=== PATIENT | male | born 1950 | race Caucasian/White ===

== ENCOUNTER 2018-09-15 06:45 | Inpatient (IN) ==
[2018-09-15] MEDS ORDERED: ENOXAPARIN 100 MG/ML SYRINGE SUBCUT STA (07:09)
[2018-09-15] MEDS ORDERED: POTASSIUM CHLORIDE 20 MEQ TABLET PO PRN (08:48)
[2018-09-15] MEDS ORDERED: MORPHINE 4 MG/1 ML VIAL IV PRN (08:48)
[2018-09-15] MEDS ORDERED: GLUCAGON 1 MG VIAL IM PRN (08:48)
[2018-09-15] MEDS ORDERED: MAGNESIUM SULF RIDER 2 GM in PREMIX 1 EACH IV PRN (08:48)
[2018-09-15] MEDS ORDERED: DEXTROSE 50% 25 GM/50 ML VIAL IV PRN (08:48)
[2018-09-15] MEDS ORDERED: MAGNESIUM SULF RIDER 4 GM in PREMIX 1 EACH IV PRN (08:48)
[2018-09-15] MEDS ORDERED: ONDANSETRON 4 MG/2 ML VIAL IV PRN (08:48)
[2018-09-15] MEDS ORDERED: NITROGLYCERIN SL 0.4 MG TABLET SL PRN (08:52)
[2018-09-15] MEDS ORDERED: METOPROLOL TARTRATE 5 MG/5 ML VIAL IV PRN (10:02)
[2018-09-15] MEDS: SODIUM CHLORIDE 0.45% 1,000 ML IV SCH (10:58)
[2018-09-15] MEDS: NITROGLYCERIN 2% OINT 1 INCH/GM PACK TOP SCH ×2 (10:59→21:58)
[2018-09-15 14:55] LABS: Alanine Aminotransferase 13 U/L (16-61); Albumin 2.8 G/DL (3.4-5.0); Alkaline Phosphatase 105 U/L (45-117); Aspartate Amino Transferase 16 U/L (0-37); Bilirubin,Total < 0.39 MG/DL (0.2-1.0); Blood Urea Nitrogen 52 MG/DL (7-18); Glucose 159 MG/DL (74-106); Osmolality,Calculated 299.1 MOS/KG (273-304); Potassium 4.6 MMOL/L (3.5-5.1); Risk Ratio 3.59; Sodium 142 MMOL/L (136-145); Total Protein 6.3 G/DL (6.4-8.3)
[2018-09-15] MEDS ORDERED: SODIUM POLYSTYRENE SULFATE 15 GM/60 ML BOTTLE PO PRN (14:58)
[2018-09-15] MEDS: INSULIN LISPRO 100 UNIT/ML SUBCUT SCH ×3 (15:02→21:59)
[2018-09-15] MEDS: CLOPIDOGREL 75 MG TABLET PO SCH (15:19)
[2018-09-15] MEDS: METOPROLOL SUCCINATE XL 100 MG TABLET PO SCH (15:20)
[2018-09-15] MEDS: POLYCARBOPHIL 625 MG TABLET PO SCH (21:58)
[2018-09-15] MEDS: RANOLAZINE 500 MG TABLET PO SCH (21:59)
[2018-09-15] MEDS: ATORVASTATIN 80 MG TABLET PO SCH (21:59)
[2018-09-15] MEDS: CILOSTAZOL 100 MG TABLET PO SCH (21:59)
[2018-09-15] MEDS: ASPIRIN EC 81 MG TABLET PO SCH (22:03)
[2018-09-16 05:31] LABS: Basophils # 0.1 10*3/uL (0.0-0.2); Basophils % 0.8 % (0.0-0.8); Eosinophils # 0.3 10*3/uL (0.0-0.87); Eosinophils % 3.6 % (0.00-10.9); Hematocrit 36.2 VOL% (42.0-52.0); Immature Granulocytes % 0.5 %; Immature Granulocytes Absolute 0.04 #; Lymphocytes % 25.9 % (21.2-54.2); Mean Corpuscular HGB Conc 33.1 GM/DL (32-36); Mean Corpuscular Hemoglobin 33 PG (27-34); Mean Corpuscular Volume 99.7 FL (87-102); Mean Platelet Volume 10.9 FL (9.6-12.0); Monocytes # 0.5 10*3/uL (0.11-0.8); Monocytes % 6.5 % (1.7-12.7); Neutrophils # 4.9 10*3/uL (1.4-7.4); Neutrophils % 62.7 % (38.7-73.9); Platelet Count 207 T/CUMM (130-400); Red Blood Count 3.63 MC/CUMM (3.8-5.5); Red Cell Distribution Width 12.3 % (9.3-17.3); White Blood Count 7.9 T/CUMM (4-12)
[2018-09-16 05:48] LABS: Calcium 7.7 MG/DL (8.5-10.1); Osmolality,Calculated 297.1 MOS/KG (273-304); Potassium 5.1 MMOL/L (3.5-5.1)
[2018-09-16] MEDS: LEVOTHYROXINE 75 MCG TABLET PO SCH (06:05)
[2018-09-16] MEDS: ENOXAPARIN 30 MG/0.3 ML SYRINGE SUBCUT SCH (08:09)
[2018-09-16] MEDS: NITROGLYCERIN 2% OINT 1 INCH/GM PACK TOP SCH ×2 (08:09→21:43)
[2018-09-16] MEDS: CLOPIDOGREL 75 MG TABLET PO SCH (08:10)
[2018-09-16] MEDS: FUROSEMIDE 40 MG TABLET PO SCH (08:10)
[2018-09-16] MEDS: METOPROLOL SUCCINATE XL 100 MG TABLET PO SCH (08:10)
[2018-09-16] MEDS: ASCORBIC ACID 500 MG TABLET PO SCH (08:10)
[2018-09-16] MEDS: TAMSULOSIN 0.4 MG CAPSULE PO SCH (08:10)
[2018-09-16] MEDS: FINASTERIDE 5 MG TABLET PO SCH (08:10)
[2018-09-16] MEDS: MAGNESIUM OXIDE 400 MG TABLET PO SCH (08:10)
[2018-09-16] MEDS: PANTOPRAZOLE 40 MG TABLET PO SCH (08:11)
[2018-09-16] MEDS: glipiZIDE 5 MG TABLET PO SCH (08:11)
[2018-09-16] MEDS: RANOLAZINE 500 MG TABLET PO SCH ×2 (08:11→21:42)
[2018-09-16] MEDS: POLYCARBOPHIL 625 MG TABLET PO SCH ×2 (08:17→21:42)
[2018-09-16] MEDS: CILOSTAZOL 100 MG TABLET PO SCH ×2 (08:17→21:42)
[2018-09-16] MEDS: INSULIN LISPRO 100 UNIT/ML SUBCUT SCH ×4 (08:21→21:43)
[2018-09-16] MEDS: SODIUM CHLORIDE 0.45% 1,000 ML IV SCH ×2 (08:21→10:30)
[2018-09-16] MEDS: CETIRIZINE 10 MG TABLET PO SCH (08:22)
[2018-09-16] MEDS ORDERED: METOPROLOL SUCCINATE XL 100 MG TABLET PO SCH (09:00)
[2018-09-16] MEDS ORDERED: SODIUM POLYSTYRENE SULFATE 15 GM/60 ML BOTTLE PO SCH (09:00)
[2018-09-16] MEDS ORDERED: CLOPIDOGREL 75 MG TABLET PO SCH (09:00)
[2018-09-16] MEDS: ACETYLCYSTEINE 600 MG CAPSULE PO SCH (21:42)
[2018-09-16] MEDS: ASPIRIN EC 81 MG TABLET PO SCH (21:43)
[2018-09-16] MEDS: ATORVASTATIN 80 MG TABLET PO SCH (21:43)
[2018-09-17 05:05] LABS: Calcium 7.4 MG/DL (8.5-10.1); Osmolality,Calculated 292.4 MOS/KG (273-304); Potassium 4.5 MMOL/L (3.5-5.1)
[2018-09-17] MEDS: LEVOTHYROXINE 75 MCG TABLET PO SCH (05:53)
[2018-09-17] MEDS: SODIUM CHLORIDE 0.45% 1,000 ML IV SCH ×2 (06:29→09:30)
[2018-09-17] MEDS: INSULIN LISPRO 100 UNIT/ML SUBCUT SCH ×4 (08:59→22:16)
[2018-09-17] MEDS: TAMSULOSIN 0.4 MG CAPSULE PO SCH (09:23)
[2018-09-17] MEDS: ACETYLCYSTEINE 600 MG CAPSULE PO SCH ×2 (09:23→22:17)
[2018-09-17] MEDS: FINASTERIDE 5 MG TABLET PO SCH (09:23)
[2018-09-17] MEDS: ASCORBIC ACID 500 MG TABLET PO SCH (09:24)
[2018-09-17] MEDS: MAGNESIUM OXIDE 400 MG TABLET PO SCH (09:24)
[2018-09-17] MEDS: CILOSTAZOL 100 MG TABLET PO SCH ×2 (09:24→22:17)
[2018-09-17] MEDS: CLOPIDOGREL 75 MG TABLET PO SCH (09:24)
[2018-09-17] MEDS: POLYCARBOPHIL 625 MG TABLET PO SCH ×2 (09:24→22:17)
[2018-09-17] MEDS: RANOLAZINE 500 MG TABLET PO SCH ×2 (09:24→22:17)
[2018-09-17] MEDS: PANTOPRAZOLE 40 MG TABLET PO SCH (09:24)
[2018-09-17] MEDS: METOPROLOL SUCCINATE XL 100 MG TABLET PO SCH (09:24)
[2018-09-17] MEDS: FUROSEMIDE 40 MG TABLET PO SCH (09:24)
[2018-09-17] MEDS: glipiZIDE 5 MG TABLET PO SCH (09:24)
[2018-09-17] MEDS: NITROGLYCERIN 2% OINT 1 INCH/GM PACK TOP SCH ×2 (09:25→22:16)
[2018-09-17] MEDS: ENOXAPARIN 30 MG/0.3 ML SYRINGE SUBCUT SCH (09:31)
[2018-09-17] MEDS: CETIRIZINE 10 MG TABLET PO SCH (09:31)
[2018-09-17] MEDS: CARVEDILOL 25 MG TABLET PO SCH ×2 (11:50→22:17)
[2018-09-17] MEDS: ASPIRIN EC 81 MG TABLET PO SCH (22:16)
[2018-09-17] MEDS: ATORVASTATIN 80 MG TABLET PO SCH (22:17)
[2018-09-18] MEDS: SODIUM CHLORIDE 0.45% 1,000 ML IV SCH ×3 (06:38→16:42)
[2018-09-18] MEDS: LEVOTHYROXINE 75 MCG TABLET PO SCH (07:00)
[2018-09-18] MEDS ORDERED: MAGNESIUM SULF RIDER 2 GM in PREMIX 1 EACH IV PRN (07:04)
[2018-09-18] MEDS ORDERED: DIAZEPAM 5 MG TABLET PO ONE (07:04)
[2018-09-18] MEDS ORDERED: diphenhydrAMINE CAP 25 MG CAPSULE PO ONE (07:04)
[2018-09-18] MEDS ORDERED: POTASSIUM CHLORIDE RIDER 10 MEQ in PREMIX 1 EACH IV PRN (07:04)
[2018-09-18] MEDS: CARVEDILOL 25 MG TABLET PO SCH ×3 (07:10→20:48)
[2018-09-18] MEDS: ENOXAPARIN 30 MG/0.3 ML SYRINGE SUBCUT SCH (07:10)
[2018-09-18] MEDS: CLOPIDOGREL 75 MG TABLET PO SCH ×2 (07:10→10:27)
[2018-09-18 07:16] LABS: Osmolality,Calculated 295.3 MOS/KG (273-304); Potassium 5.3 MMOL/L (3.5-5.1)
[2018-09-18] MEDS ORDERED: LIDOCAINE 1%/EPI INJ 20 ML VIAL ONE (07:19)
[2018-09-18] MEDS ORDERED: HEPARIN/NACL 0.9% 2 UNITS/ML 1,000 ML IV ONE (07:19)
[2018-09-18 07:24] LABS: Basophils # 0.1 10*3/uL (0.0-0.2); Basophils % 0.8 % (0.0-0.8); Eosinophils # 0.3 10*3/uL (0.0-0.87); Eosinophils % 3.8 % (0.00-10.9); Immature Granulocytes % 0.3 %; Immature Granulocytes Absolute 0.02 #; Lymphocytes % 26.7 % (21.2-54.2); Mean Corpuscular HGB Conc 33.3 GM/DL (32-36); Mean Corpuscular Hemoglobin 33 PG (27-34); Mean Corpuscular Volume 98.7 FL (87-102); Mean Platelet Volume 10.9 FL (9.6-12.0); Monocytes # 0.6 10*3/uL (0.11-0.8); Neutrophils # 4.6 10*3/uL (1.4-7.4); Neutrophils % 60.4 % (38.7-73.9); Platelet Count 216 T/CUMM (130-400); Red Blood Count 3.95 MC/CUMM (3.8-5.5); Red Cell Distribution Width 12.3 % (9.3-17.3); White Blood Count 7.6 T/CUMM (4-12)
[2018-09-18] MEDS ORDERED: MIDAZOLAM 2 MG/2 ML VIAL ONE (07:51)
[2018-09-18] MEDS ORDERED: fentaNYL 100 MCG/2 ML VIAL ONE (07:51)
[2018-09-18] MEDS ORDERED: NITROGLYCERIN DRIP 50 MG/250 ML BOTTLE IV ONE (07:53)
[2018-09-18] MEDS ORDERED: LIDOCAINE 1% 20 ML VIAL ONE (07:53)
[2018-09-18] MEDS ORDERED: VERAPAMIL 5 MG/2 ML VIAL ONE (07:53)
[2018-09-18] MEDS: INSULIN LISPRO 100 UNIT/ML SUBCUT SCH ×4 (08:01→20:49)
[2018-09-18] MEDS: RANOLAZINE 500 MG TABLET PO SCH ×3 (10:25→20:48)
[2018-09-18] MEDS: FINASTERIDE 5 MG TABLET PO SCH (10:25)
[2018-09-18] MEDS: CETIRIZINE 10 MG TABLET PO SCH (10:25)
[2018-09-18] MEDS: TAMSULOSIN 0.4 MG CAPSULE PO SCH (10:27)
[2018-09-18] MEDS: FUROSEMIDE 40 MG TABLET PO SCH (10:28)
[2018-09-18] MEDS: MAGNESIUM OXIDE 400 MG TABLET PO SCH (10:29)
[2018-09-18] MEDS: ASCORBIC ACID 500 MG TABLET PO SCH (10:30)
[2018-09-18] MEDS: glipiZIDE 5 MG TABLET PO SCH (10:30)
[2018-09-18] MEDS: PANTOPRAZOLE 40 MG TABLET PO SCH (10:34)
[2018-09-18] MEDS: NITROGLYCERIN 2% OINT 1 INCH/GM PACK TOP SCH ×2 (10:35→20:48)
[2018-09-18] MEDS: ACETYLCYSTEINE 600 MG CAPSULE PO SCH ×2 (10:52→20:49)
[2018-09-18] MEDS: POLYCARBOPHIL 625 MG TABLET PO SCH ×2 (10:52→20:49)
[2018-09-18] MEDS: CILOSTAZOL 100 MG TABLET PO SCH ×2 (10:52→20:49)
[2018-09-18] MEDS ORDERED: diphenhydrAMINE CAP 25 MG CAPSULE PO PRN (11:31)
[2018-09-18 12:21] LABS: Troponin I 0.034 NG/ML (0.00-0.045)
[2018-09-18] MEDS: ATORVASTATIN 80 MG TABLET PO SCH (20:48)
[2018-09-18] MEDS: ASPIRIN EC 81 MG TABLET PO SCH (20:48)
[2018-09-19 03:54] LABS: Basophils # 0.1 10*3/uL (0.0-0.2); Basophils % 0.7 % (0.0-0.8); Eosinophils # 0.3 10*3/uL (0.0-0.87); Eosinophils % 4.4 % (0.00-10.9); Hematocrit 35.9 VOL% (42.0-52.0); Hemoglobin 11.9 GM/DL (14.0-18.0); Immature Granulocytes % 0.4 %; Immature Granulocytes Absolute 0.03 #; Lymphocytes # 1.7 10*3/uL (1.4-4.0); Lymphocytes % 25.4 % (21.2-54.2); Mean Corpuscular HGB Conc 33.1 GM/DL (32-36); Mean Corpuscular Hemoglobin 33 PG (27-34); Mean Corpuscular Volume 98.1 FL (87-102); Mean Platelet Volume 10.6 FL (9.6-12.0); Monocytes # 0.5 10*3/uL (0.11-0.8); Monocytes % 7.4 % (1.7-12.7); Neutrophils # 4.2 10*3/uL (1.4-7.4); Neutrophils % 61.7 % (38.7-73.9); Platelet Count 207 T/CUMM (130-400); Red Blood Count 3.66 MC/CUMM (3.8-5.5); Red Cell Distribution Width 12.2 % (9.3-17.3); White Blood Count 6.8 T/CUMM (4-12)
[2018-09-19 04:21] LABS: Calcium 7.7 MG/DL (8.5-10.1); Osmolality,Calculated 296.3 MOS/KG (273-304); Potassium 5.2 MMOL/L (3.5-5.1)
[2018-09-19] MEDS: LEVOTHYROXINE 75 MCG TABLET PO SCH (06:27)
[2018-09-19 08:30] VITALS: BP 161/77
[2018-09-19] MEDS: INSULIN LISPRO 100 UNIT/ML SUBCUT SCH (09:21)
[2018-09-19] MEDS: CLOPIDOGREL 75 MG TABLET PO SCH (09:21)
[2018-09-19] MEDS: CARVEDILOL 25 MG TABLET PO SCH (09:22)
[2018-09-19] MEDS: RANOLAZINE 500 MG TABLET PO SCH (09:22)
[2018-09-19] MEDS: PANTOPRAZOLE 40 MG TABLET PO SCH (09:22)
[2018-09-19] MEDS: MAGNESIUM OXIDE 400 MG TABLET PO SCH (09:22)
[2018-09-19] MEDS: CETIRIZINE 10 MG TABLET PO SCH (09:22)
[2018-09-19] MEDS: CILOSTAZOL 100 MG TABLET PO SCH (09:22)
[2018-09-19] MEDS: TAMSULOSIN 0.4 MG CAPSULE PO SCH (09:22)
[2018-09-19] MEDS: glipiZIDE 5 MG TABLET PO SCH (09:22)
[2018-09-19] MEDS: ASCORBIC ACID 500 MG TABLET PO SCH (09:22)
[2018-09-19] MEDS: ACETYLCYSTEINE 600 MG CAPSULE PO SCH (09:22)
[2018-09-19] MEDS: FUROSEMIDE 40 MG TABLET PO SCH (09:22)
[2018-09-19] MEDS: FINASTERIDE 5 MG TABLET PO SCH (09:22)
[2018-09-19] MEDS: NITROGLYCERIN 2% OINT 1 INCH/GM PACK TOP SCH (09:23)
[2018-09-19] MEDS: POLYCARBOPHIL 625 MG TABLET PO SCH (09:25)
[2018-09-19] MEDS ORDERED: ISOSORBIDE MONONITRATE 60 MG TABLET PO SCH (19:00)
[2018-09-21] MEDS ORDERED: ERGOCALCIFEROL 50,000 UNIT CAPSULE PO SCH (09:00)
== END 2018-09-19 11:23 | disposition home or self-care (01) | DRG 287 ==
LOC: EDBD → EDUNIT# → N.ED 06:45 → N.EDINP 08:48 → N.TELEN 14:10
PROVIDERS: ADMIT Internal Medicine Interventional Cardiology; ATTEND Internal Medicine Interventional Cardiology

== ENCOUNTER 2019-01-26 22:38 | Observation (INO) ==
[2019-01-27] MEDS ORDERED: NITROGLYCERIN SL 0.4 MG TABLET SL PRN (01:07)
[2019-01-27] MEDS ORDERED: ONDANSETRON 4 MG/2 ML VIAL IV PRN (02:04)
[2019-01-27] MEDS ORDERED: GLUCAGON 1 MG VIAL IM PRN (02:04)
[2019-01-27] MEDS ORDERED: DEXTROSE 50% 25 GM/50 ML VIAL IV PRN (02:04)
[2019-01-27] MEDS ORDERED: traZODone 50 MG TABLET PO PRN (02:04)
[2019-01-27] MEDS ORDERED: ACETAMINOPHEN 325 MG TABLET PO PRN (02:04)
[2019-01-27] MEDS ORDERED: ENOXAPARIN 40 MG/0.4 ML SYRINGE SUBCUT SCH (02:30)
[2019-01-27 02:51] LABS: Basophils % 0.3 % (0.0-0.8); Eosinophils # 0.3 10*3/uL (0.0-0.87); Eosinophils % 2.6 % (0.00-10.9); Hematocrit 36.4 VOL% (42.0-52.0); Immature Granulocytes % 0.2 %; Immature Granulocytes Absolute 0.02 #; Lymphocytes # 1.5 10*3/uL (1.4-4.0); Mean Corpuscular Volume 98.4 FL (87-102); Mean Platelet Volume 12.2 FL (9.6-12.0); Monocytes % 6.7 % (1.7-12.7); Neutrophils % 78.2 % (38.7-73.9); Platelet Count 184 T/CUMM (130-400); Red Cell Distribution Width 13.9 % (9.3-17.3); White Blood Count 12.1 T/CUMM (4-12)
[2019-01-27] MEDS: HEPARIN 5,000 UNIT/1 ML VIAL SUBCUT SCH ×3 (03:00→17:40)
[2019-01-27 03:16] LABS: Albumin 2.1 G/DL (3.4-5.0); Bilirubin,Total 0.4 MG/DL (0.2-1.0); Calcium 7.5 MG/DL (8.5-10.1); Total Protein 5.2 G/DL (6.4-8.3)
[2019-01-27 04:03] LABS: Risk Ratio 3.71; Thyroid Stimulating Hormone 3.56 uIU/ml (0.358-3.74); VLDL CHOLESTEROL 51.4 MG/DL
[2019-01-27] MEDS: LEVOTHYROXINE 75 MCG TABLET PO SCH (05:48)
[2019-01-27] MEDS: RANOLAZINE 500 MG TABLET PO SCH ×2 (09:15→21:57)
[2019-01-27] MEDS: CETIRIZINE 10 MG TABLET PO SCH (09:15)
[2019-01-27] MEDS: ASCORBIC ACID 500 MG TABLET PO SCH (09:16)
[2019-01-27] MEDS: FINASTERIDE 5 MG TABLET PO SCH (09:16)
[2019-01-27] MEDS: POLYCARBOPHIL 625 MG TABLET PO SCH ×2 (09:16→21:57)
[2019-01-27] MEDS: INSULIN LISPRO 100 UNIT/ML SUBCUT SCH ×4 (09:16→21:57)
[2019-01-27] MEDS: TAMSULOSIN 0.4 MG CAPSULE PO SCH (09:16)
[2019-01-27] MEDS: PANTOPRAZOLE 40 MG TABLET PO SCH (09:16)
[2019-01-27] MEDS: METOPROLOL SUCCINATE XL 100 MG TABLET PO SCH (09:16)
[2019-01-27] MEDS: glipiZIDE 5 MG TABLET PO SCH (09:16)
[2019-01-27] MEDS: DOCUSATE SODIUM 100 MG CAPSULE PO PRN (09:16)
[2019-01-27] MEDS: CILOSTAZOL 100 MG TABLET PO SCH ×2 (09:16→21:57)
[2019-01-27] MEDS: ASPIRIN EC 81 MG TABLET PO SCH (09:16)
[2019-01-27] MEDS: MAGNESIUM OXIDE 400 MG TABLET PO SCH (09:16)
[2019-01-27] MEDS: FUROSEMIDE 40 MG/4 ML VIAL IV SCH ×2 (09:17→15:47)
[2019-01-27] MEDS: SODIUM POLYSTYRENE SULFATE 15 GM/60 ML BOTTLE PO SCH (10:32)
[2019-01-27] MEDS: CLOPIDOGREL 75 MG TABLET PO SCH (10:38)
[2019-01-27] MEDS: FENOFIBRATE 145 MG TABLET PO SCH (11:42)
[2019-01-27] MEDS: ISOSORBIDE MONONITRATE 60 MG TABLET PO SCH (18:20)
[2019-01-27] MEDS: ATORVASTATIN 40 MG TABLET PO SCH (21:57)
[2019-01-27] MEDS: hydrALAZINE 25 MG TABLET PO SCH (21:57)
[2019-01-27] MEDS: MORPHINE 4 MG/1 ML VIAL IV PRN (22:03)
[2019-01-28] MEDS: HEPARIN 5,000 UNIT/1 ML VIAL SUBCUT SCH ×3 (03:35→18:13)
[2019-01-28 04:50] LABS: Basophils % 0.5 % (0.0-0.8); Eosinophils # 0.2 10*3/uL (0.0-0.87); Eosinophils % 3.1 % (0.00-10.9); Hematocrit 34.2 VOL% (42.0-52.0); Immature Granulocytes % 0.3 %; Immature Granulocytes Absolute 0.02 #; Lymphocytes % 26.3 % (21.2-54.2); Mean Corpuscular HGB Conc 32.2 GM/DL (32-36); Mean Corpuscular Volume 99.7 FL (87-102); Mean Platelet Volume 12.3 FL (9.6-12.0); Monocytes % 10.2 % (1.7-12.7); Neutrophils % 59.6 % (38.7-73.9); Platelet Count 179 T/CUMM (130-400); Red Blood Count 3.43 MC/CUMM (3.8-5.5); Red Cell Distribution Width 13.3 % (9.3-17.3); White Blood Count 7.5 T/CUMM (4-12)
[2019-01-28 05:17] LABS: Calcium 7.1 MG/DL (8.5-10.1); Osmolality,Calculated 297.3 MOS/KG (273-304)
[2019-01-28] MEDS: LEVOTHYROXINE 75 MCG TABLET PO SCH (06:37)
[2019-01-28] MEDS: INSULIN LISPRO 100 UNIT/ML SUBCUT SCH ×4 (07:21→21:52)
[2019-01-28] MEDS: FUROSEMIDE 40 MG/4 ML VIAL IV SCH ×2 (09:27→17:09)
[2019-01-28] MEDS: PANTOPRAZOLE 40 MG TABLET PO SCH (10:53)
[2019-01-28] MEDS: POLYCARBOPHIL 625 MG TABLET PO SCH ×2 (10:53→21:52)
[2019-01-28] MEDS: CETIRIZINE 10 MG TABLET PO SCH (10:53)
[2019-01-28] MEDS: DOCUSATE SODIUM 100 MG CAPSULE PO PRN (10:53)
[2019-01-28] MEDS: hydrALAZINE 25 MG TABLET PO SCH (10:54)
[2019-01-28] MEDS: FENOFIBRATE 145 MG TABLET PO SCH (10:54)
[2019-01-28] MEDS: CILOSTAZOL 100 MG TABLET PO SCH ×2 (10:54→21:52)
[2019-01-28] MEDS: METOPROLOL SUCCINATE XL 100 MG TABLET PO SCH (10:54)
[2019-01-28] MEDS: ASCORBIC ACID 500 MG TABLET PO SCH (10:54)
[2019-01-28] MEDS: CLOPIDOGREL 75 MG TABLET PO SCH (10:54)
[2019-01-28] MEDS: SODIUM POLYSTYRENE SULFATE 15 GM/60 ML BOTTLE PO SCH (10:55)
[2019-01-28] MEDS: ASPIRIN EC 81 MG TABLET PO SCH (10:56)
[2019-01-28] MEDS: glipiZIDE 5 MG TABLET PO SCH (10:56)
[2019-01-28] MEDS: RANOLAZINE 500 MG TABLET PO SCH ×2 (10:56→21:52)
[2019-01-28] MEDS: FINASTERIDE 5 MG TABLET PO SCH (10:57)
[2019-01-28] MEDS: TAMSULOSIN 0.4 MG CAPSULE PO SCH (10:57)
[2019-01-28] MEDS: MAGNESIUM OXIDE 400 MG TABLET PO SCH (11:02)
[2019-01-28] MEDS: ISOSORBIDE MONONITRATE 60 MG TABLET PO SCH (18:14)
[2019-01-28] MEDS: ATORVASTATIN 40 MG TABLET PO SCH (21:52)
[2019-01-28] MEDS: MORPHINE 4 MG/1 ML VIAL IV PRN (21:59)
[2019-01-29] MEDS: HEPARIN 5,000 UNIT/1 ML VIAL SUBCUT SCH (04:00)
[2019-01-29] MEDS: LEVOTHYROXINE 75 MCG TABLET PO SCH (06:22)
[2019-01-29 07:32] LABS: Basophils # 0.1 10*3/uL (0.0-0.2); Basophils % 0.9 % (0.0-0.8); Eosinophils # 0.3 10*3/uL (0.0-0.87); Eosinophils % 4.9 % (0.00-10.9); Hemoglobin 12.2 GM/DL (14.0-18.0); Immature Granulocytes % 0.2 %; Immature Granulocytes Absolute 0.01 #; Lymphocytes # 1.8 10*3/uL (1.4-4.0); Lymphocytes % 30.5 % (21.2-54.2); Mean Corpuscular HGB Conc 33.9 GM/DL (32-36); Mean Corpuscular Volume 98.1 FL (87-102); Mean Platelet Volume 11.9 FL (9.6-12.0); Monocytes % 8.6 % (1.7-12.7); Neutrophils % 54.9 % (38.7-73.9); Platelet Count 184 T/CUMM (130-400); Red Blood Count 3.67 MC/CUMM (3.8-5.5); Red Cell Distribution Width 13.5 % (9.3-17.3); White Blood Count 5.7 T/CUMM (4-12)
[2019-01-29 08:08] VITALS: BP 154/79
[2019-01-29 08:09] LABS: Bilirubin,Total 0.4 MG/DL (0.2-1.0); Calcium 7.5 MG/DL (8.5-10.1); Osmolality,Calculated 292.5 MOS/KG (273-304); Total Protein 5.4 G/DL (6.4-8.3)
[2019-01-29] MEDS: CETIRIZINE 10 MG TABLET PO SCH (10:25)
[2019-01-29] MEDS: RANOLAZINE 500 MG TABLET PO SCH (10:25)
[2019-01-29] MEDS: FENOFIBRATE 145 MG TABLET PO SCH (10:25)
[2019-01-29] MEDS: CILOSTAZOL 100 MG TABLET PO SCH (10:25)
[2019-01-29] MEDS: FINASTERIDE 5 MG TABLET PO SCH (10:25)
[2019-01-29] MEDS: CLOPIDOGREL 75 MG TABLET PO SCH (10:26)
[2019-01-29] MEDS: glipiZIDE 5 MG TABLET PO SCH (10:26)
[2019-01-29] MEDS: POLYCARBOPHIL 625 MG TABLET PO SCH (10:26)
[2019-01-29] MEDS: PANTOPRAZOLE 40 MG TABLET PO SCH (10:26)
[2019-01-29] MEDS: ASPIRIN EC 81 MG TABLET PO SCH (10:26)
[2019-01-29] MEDS: SODIUM POLYSTYRENE SULFATE 15 GM/60 ML BOTTLE PO SCH (10:26)
[2019-01-29] MEDS: METOPROLOL SUCCINATE XL 100 MG TABLET PO SCH (10:26)
[2019-01-29] MEDS: MAGNESIUM OXIDE 400 MG TABLET PO SCH (10:26)
[2019-01-29] MEDS: ASCORBIC ACID 500 MG TABLET PO SCH (10:26)
[2019-01-29] MEDS: TAMSULOSIN 0.4 MG CAPSULE PO SCH (10:30)
[2019-01-29] MEDS: FUROSEMIDE 40 MG/4 ML VIAL IV SCH (10:31)
[2019-01-29] MEDS: INSULIN LISPRO 100 UNIT/ML SUBCUT SCH (10:34)
[2019-02-01] MEDS ORDERED: ERGOCALCIFEROL 50,000 UNIT CAPSULE PO SCH (09:00)
== END 2019-01-29 11:41 | disposition home or self-care (01) ==
LOC: N.3E 23:03 → SUATTDRO 01-27 00:19 → INTOOBSV 01-27 00:19
PROVIDERS: ADMIT Hospitalist; ATTEND Hospitalist

== ENCOUNTER 2019-03-09 17:05 | Inpatient (IN) ==
[2019-03-09] MEDS ORDERED: PROPOFOL 1,000 MG/100 ML BOTTLE IV ONE (19:02)
[2019-03-09] MEDS: PROPOFOL 1,000 MG/100 ML BOTTLE IV SCH ×2 (19:10→23:05)
[2019-03-09 20:17] LABS: Allen Test Positive; Pt O2 Delivery Device Ventilator
[2019-03-09] MEDS ORDERED: METOPROLOL TARTRATE 5 MG/5 ML VIAL IV PRN (20:17)
[2019-03-09 20:18] LABS: ABG Base Excess -6.2 MMOL/L (-2.5-2.5); ABG HCO3 19.3 MMOL/L (20-26); ABG Oxygen Saturation 93.2 % (95-100); ABG PCO2 44.9 MM HG (35-48); ABG PH 7.273 (7.35-7.45); ABG PO2 72.3 MM HG (80-95); ABG TCO2 18.5 MMOL/L (23-27)
[2019-03-09 20:57] LABS: Basophils # 0.1 10*3/uL (0.0-0.2); Basophils % 0.4 % (0.0-0.8); Eosinophils # 0.1 10*3/uL (0.0-0.87); Eosinophils % 0.4 % (0.00-10.9); Hematocrit 36.9 VOL% (42.0-52.0); Hemoglobin 12.5 GM/DL (14.0-18.0); Immature Granulocytes % 0.6 %; Immature Granulocytes Absolute 0.08 #; Lymphocytes # 0.6 10*3/uL (1.4-4.0); Lymphocytes % 4.1 % (21.2-54.2); Mean Corpuscular HGB Conc 33.9 GM/DL (32-36); Mean Corpuscular Volume 102.5 FL (87-102); Mean Platelet Volume 12.2 FL (9.6-12.0); Monocytes % 0.8 % (1.7-12.7); Neutrophils % 93.7 % (38.7-73.9); Platelet Count 205 T/CUMM (130-400); Red Cell Distribution Width 13.3 % (9.3-17.3); White Blood Count 14.2 T/CUMM (4-12)
[2019-03-09 21:11] LABS: INR 0.9; PT Patient Result 9.6 SECS
[2019-03-09] MEDS: FAMOTIDINE 20 MG/2 ML VIAL IV SCH (21:14)
[2019-03-09] MEDS: ENOXAPARIN 30 MG/0.3 ML SYRINGE SUBCUT SCH (21:14)
[2019-03-09 21:26] LABS: Osmolality,Calculated 290.1 MOS/KG (273-304)
[2019-03-09 21:27] LABS: Band Neutrophils 2 % (0-10); Lymphocytes 3 % (20-55); Macrocytosis 2+; Platelet Estimate Normal; Segmented Neutrophils 95 % (50-85); Total Cells Counted 100
[2019-03-09] MEDS: ALBUTEROL/IPRATROPIUM 3 ML NEB RESP TX SCH (23:45)
[2019-03-10] MEDS: ALBUTEROL/IPRATROPIUM 3 ML NEB RESP TX SCH ×6 (03:20→23:01)
[2019-03-10] MEDS: PROPOFOL 1,000 MG/100 ML BOTTLE IV SCH ×7 (03:53→21:35)
[2019-03-10 04:51] LABS: Allen Test Positive; Pt O2 Delivery Device Ventilator
[2019-03-10 05:06] LABS: ABG Base Excess -5.5 MMOL/L (-2.5-2.5); ABG HCO3 19.7 MMOL/L (20-26); ABG Oxygen Saturation 97.7 % (95-100); ABG PCO2 37.6 MM HG (35-48); ABG PH 7.338 (7.35-7.45); ABG PO2 100.2 MM HG (80-95); ABG TCO2 20.9 MMOL/L (23-27)
[2019-03-10] MEDS: hydrALAZINE 20 MG/1 ML VIAL IV PRN ×2 (05:12→17:05)
[2019-03-10 05:53] LABS: Thyroid Stimulating Hormone 3.13 uIU/ml (0.358-3.74)
[2019-03-10 06:54] LABS: Apearance,Urine Slightly Hazy (Clear); Bacteria,Urine Occasional /HPF (Few); Bilirubin,Urine Negative (Negative); Blood, Urine Moderate mg/dL (Negative); Glucose,Urine (UA) 150 mg/dL (Negative); Ketones,Urine 5 mg/dL (Negative); Mucus,Urine Occasional /LPF (Occasional); Nitrite,Urine Negative (Negative); Protein,Urine >=500 MG/DL; RBC,Urine 33 /HPF (0-4); Squamous Epithelial Cell,Urine Occasional /HPF (0-10); Urine Color Yellow (Yellow); Urine Specific Gravity 1.019 (1.001-1.035); Urine Urobilinogen < 2.0 EU/DL (0.2-1.0); WBC,Urine 5 /HPF (0-6)
[2019-03-10] MEDS: FAMOTIDINE 20 MG/2 ML VIAL IV SCH ×2 (07:50→20:23)
[2019-03-10] MEDS: FUROSEMIDE 40 MG/4 ML VIAL IV SCH ×2 (07:51→16:36)
[2019-03-10] MEDS: cefTRIAXone 1,000 MG in SYRINGE 1 EACH IV SCH (11:04)
[2019-03-10] MEDS: AZITHROMYCIN INJ 500 MG in SODIUM CHLORIDE 0.9% 250 ML IV SCH (11:17)
[2019-03-10] MEDS: INSULIN REGULAR 100 UNIT/ML SUBCUT SCH ×3 (11:29→17:39)
[2019-03-10] MEDS ORDERED: CALCIUM GLUCONATE 2,000 MG in SODIUM CHLORIDE 0.9% 100 ML IV PRN (13:26)
[2019-03-10] MEDS ORDERED: FUROSEMIDE 100 MG/10 ML VIAL IV ONE (13:34)
[2019-03-10] MEDS ORDERED: ALBUMIN 25% 25 GM in PREMIX 1 EACH IV ONE (13:35)
[2019-03-10] MEDS ORDERED: SODIUM POLYSTYRENE SULFATE 15 GM/60 ML BOTTLE PER TUBE PRN (14:37)
[2019-03-10] MEDS ORDERED: MORPHINE 4 MG/1 ML VIAL IV PRN (17:53)
[2019-03-10] MEDS ORDERED: MORPHINE 4 MG/1 ML VIAL ONE (17:57)
[2019-03-10] MEDS: ENOXAPARIN 30 MG/0.3 ML SYRINGE SUBCUT SCH (20:22)
[2019-03-10] MEDS: metOLazone 5 MG TABLET PO SCH (20:24)
[2019-03-11] MEDS: INSULIN REGULAR 100 UNIT/ML SUBCUT SCH ×5 (00:04→23:53)
[2019-03-11] MEDS: PROPOFOL 1,000 MG/100 ML BOTTLE IV SCH ×3 (00:50→07:50)
[2019-03-11] MEDS: ALBUTEROL/IPRATROPIUM 3 ML NEB RESP TX SCH ×6 (02:44→23:20)
[2019-03-11 05:34] LABS: Basophils % 0.1 % (0.0-0.8); Eosinophils % 0.1 % (0.00-10.9); Hematocrit 34.7 VOL% (42.0-52.0); Hemoglobin 12.4 GM/DL (14.0-18.0); Immature Granulocytes Absolute 0.18 #; Lymphocytes # 2.3 10*3/uL (1.4-4.0); Lymphocytes % 13.1 % (21.2-54.2); Mean Corpuscular HGB Conc 35.7 GM/DL (32-36); Mean Corpuscular Volume 105.8 FL (87-102); Mean Platelet Volume 12.7 FL (9.6-12.0); Monocytes % 7.5 % (1.7-12.7); Neutrophils % 78.2 % (38.7-73.9); Platelet Count 198 T/CUMM (130-400); Red Blood Count 3.28 MC/CUMM (3.8-5.5); White Blood Count 17.2 T/CUMM (4-12)
[2019-03-11 06:39] LABS: Band Neutrophils 3 % (0-10); Lymphocytes 13 % (20-55); Platelet Estimate Adequate; Segmented Neutrophils 79 % (50-85); Smudge Cells Moderate; Total Cells Counted 100
[2019-03-11 06:50] LABS: Hepatitis B Core IgM Quant 0.05 Index; Hepatitis B Surface Ag Quant 0.16 Index; Hepatitis B Surface Ag Result Negative (Negative); Hepatitis C Virus Ab Quant < 0.02 Index; Hepatitis C Virus Ab Result Negative (Negative)
[2019-03-11 07:40] LABS: Osmolality,Calculated 234.6 MOS/KG (273-304)
[2019-03-11] MEDS: FAMOTIDINE 20 MG/2 ML VIAL IV SCH ×2 (08:30→21:31)
[2019-03-11] MEDS: FUROSEMIDE 40 MG/4 ML VIAL IV SCH ×3 (08:30→16:35)
[2019-03-11] MEDS: metOLazone 5 MG TABLET PO SCH ×2 (08:31→22:14)
[2019-03-11] MEDS ORDERED: FUROSEMIDE 20 MG/2 ML VIAL ONE (09:35)
[2019-03-11 09:55] LABS: Osmolality,Calculated 306.4 MOS/KG (273-304)
[2019-03-11] MEDS: cefTRIAXone 1,000 MG in SYRINGE 1 EACH IV SCH (11:16)
[2019-03-11] MEDS: AZITHROMYCIN INJ 500 MG in SODIUM CHLORIDE 0.9% 250 ML IV SCH (11:20)
[2019-03-11] MEDS ORDERED: methylPREDNISolone SOD SUC 40 MG/1 ML VIAL ONE (14:07)
[2019-03-11] MEDS: methylPREDNISolone SOD SUC 125 MG/2 ML VIAL IV SCH ×2 (14:10→21:34)
[2019-03-11] MEDS: hydrALAZINE 20 MG/1 ML VIAL IV PRN ×2 (15:12→21:37)
[2019-03-11 16:13] LABS: ABG Base Excess -7.7 MMOL/L (-2.5-2.5); ABG HCO3 17.1 MMOL/L (20-26); ABG Oxygen Saturation 95.3 % (95-100); ABG PCO2 32.8 MM HG (35-48); ABG PH 7.336 (7.35-7.45); ABG PO2 80.6 MM HG (80-95); ABG TCO2 18.1 MMOL/L (23-27); Allen Test Positive
[2019-03-11] MEDS: ENOXAPARIN 30 MG/0.3 ML SYRINGE SUBCUT SCH (21:31)
[2019-03-12] MEDS: ALBUTEROL/IPRATROPIUM 3 ML NEB RESP TX SCH ×6 (02:29→23:56)
[2019-03-12] MEDS: hydrALAZINE 20 MG/1 ML VIAL IV PRN ×2 (03:05→18:09)
[2019-03-12 04:09] LABS: ABG Base Excess -6.7 MMOL/L (-2.5-2.5); ABG HCO3 18.4 MMOL/L (20-26); ABG PCO2 35.8 MM HG (35-48); ABG PH 7.329 (7.35-7.45); ABG PO2 86.5 MM HG (80-95); ABG TCO2 19.5 MMOL/L (23-27); Allen Test Positive
[2019-03-12] MEDS: methylPREDNISolone SOD SUC 125 MG/2 ML VIAL IV SCH ×3 (05:33→21:30)
[2019-03-12] MEDS: INSULIN REGULAR 100 UNIT/ML SUBCUT SCH ×3 (05:55→18:09)
[2019-03-12 06:06] LABS: Basophils % 0.1 % (0.0-0.8); Hematocrit 35.7 VOL% (42.0-52.0); Hemoglobin 11.7 GM/DL (14.0-18.0); Immature Granulocytes % 0.8 %; Immature Granulocytes Absolute 0.14 #; Lymphocytes # 0.3 10*3/uL (1.4-4.0); Lymphocytes % 1.8 % (21.2-54.2); Mean Corpuscular HGB Conc 32.8 GM/DL (32-36); Mean Corpuscular Volume 102.3 FL (87-102); Mean Platelet Volume 12.4 FL (9.6-12.0); Monocytes % 1.2 % (1.7-12.7); Neutrophils % 96.1 % (38.7-73.9); Platelet Count 226 T/CUMM (130-400); Red Blood Count 3.49 MC/CUMM (3.8-5.5); Red Cell Distribution Width 13.9 % (9.3-17.3); White Blood Count 18.5 T/CUMM (4-12)
[2019-03-12 06:34] LABS: Calcium 7.5 MG/DL (8.5-10.1)
[2019-03-12 06:35] LABS: Hypochromasia 1+; Lymphocytes 3 % (20-55); Ovalocytes Slight; Platelet Estimate Adequate; Segmented Neutrophils 97 % (50-85); Total Cells Counted 100
[2019-03-12] MEDS: FAMOTIDINE 20 MG/2 ML VIAL IV SCH (08:10)
[2019-03-12] MEDS: FUROSEMIDE 40 MG/4 ML VIAL IV SCH ×2 (08:10→16:20)
[2019-03-12] MEDS: metOLazone 5 MG TABLET PO SCH ×2 (08:11→21:30)
[2019-03-12] MEDS ORDERED: ceFAZolin 1,000 MG in SYRINGE 1 EACH IV ONE (09:11)
[2019-03-12] MEDS ORDERED: FUROSEMIDE 20 MG/2 ML VIAL ONE (11:15)
[2019-03-12] MEDS: AZITHROMYCIN INJ 500 MG in SODIUM CHLORIDE 0.9% 250 ML IV SCH (11:22)
[2019-03-12] MEDS: cefTRIAXone 1,000 MG in SYRINGE 1 EACH IV SCH (11:22)
[2019-03-12] MEDS ORDERED: FUROSEMIDE 40 MG/4 ML VIAL IV ONE (12:00)
[2019-03-12] MEDS ORDERED: BUPIVACAINE MPF 0.25% /EPI 30 ML VIAL ONE (12:43)
[2019-03-12] MEDS ORDERED: LIDOCAINE 1% 20 ML VIAL ONE (12:43)
[2019-03-12] MEDS ORDERED: HEPARIN 5,000 UNIT/1 ML VIAL ONE (12:43)
[2019-03-12] MEDS ORDERED: KETAMINE 500 MG/10 ML VIAL ONE (14:20)
[2019-03-12] MEDS ORDERED: HEPARIN 10,000 UNIT/10 ML VIAL IV SCH (16:30)
[2019-03-12] MEDS: ENOXAPARIN 30 MG/0.3 ML SYRINGE SUBCUT SCH (21:29)
[2019-03-13] MEDS: hydrALAZINE 20 MG/1 ML VIAL IV PRN ×2 (02:06→13:45)
[2019-03-13] MEDS: INSULIN REGULAR 100 UNIT/ML SUBCUT SCH ×5 (02:08→23:38)
[2019-03-13] MEDS: ALBUTEROL/IPRATROPIUM 3 ML NEB RESP TX SCH ×5 (03:27→19:34)
[2019-03-13 04:52] LABS: Basophils % 0.1 % (0.0-0.8); Hematocrit 36.7 VOL% (42.0-52.0); Immature Granulocytes % 0.5 %; Immature Granulocytes Absolute 0.09 #; Lymphocytes # 0.4 10*3/uL (1.4-4.0); Lymphocytes % 2.2 % (21.2-54.2); Mean Corpuscular HGB Conc 32.7 GM/DL (32-36); Mean Corpuscular Volume 102.2 FL (87-102); Mean Platelet Volume 12.6 FL (9.6-12.0); Monocytes % 2.3 % (1.7-12.7); Neutrophils % 94.9 % (38.7-73.9); Platelet Count 230 T/CUMM (130-400); Red Blood Count 3.59 MC/CUMM (3.8-5.5); Red Cell Distribution Width 13.5 % (9.3-17.3); White Blood Count 17.9 T/CUMM (4-12)
[2019-03-13 05:14] LABS: Calcium 7.8 MG/DL (8.5-10.1)
[2019-03-13 05:39] LABS: Lymphocytes 2 % (20-55); Segmented Neutrophils 96 % (50-85); Total Cells Counted 100
[2019-03-13 05:40] LABS: Hypochromasia 1+; Macrocytosis 1+; Platelet Estimate Normal
[2019-03-13] MEDS: methylPREDNISolone SOD SUC 125 MG/2 ML VIAL IV SCH ×3 (06:30→21:55)
[2019-03-13] MEDS: FUROSEMIDE 40 MG/4 ML VIAL IV SCH (08:27)
[2019-03-13] MEDS: FAMOTIDINE 20 MG/2 ML VIAL IV SCH (08:27)
[2019-03-13] MEDS: metOLazone 5 MG TABLET PO SCH (08:32)
[2019-03-13] MEDS ORDERED: LORazepam 2 MG/1 ML VIAL ONE (10:12)
[2019-03-13] MEDS: CLORAZEPATE 3.75 MG TABLET PO SCH ×2 (10:35→21:50)
[2019-03-13] MEDS: LORazepam 2 MG/1 ML VIAL IV PRN ×2 (10:35→18:18)
[2019-03-13] MEDS: AZITHROMYCIN INJ 500 MG in SODIUM CHLORIDE 0.9% 250 ML IV SCH (11:40)
[2019-03-13] MEDS: cefTRIAXone 1,000 MG in SYRINGE 1 EACH IV SCH (12:13)
[2019-03-13] MEDS: ISOSORBIDE MONONITRATE 60 MG TABLET PO SCH (18:21)
[2019-03-13 21:15] LABS: Barbiturates Screen,Urine Negative (Negative); Benzodiazepines Screen,Urine Positive (Negative); Cannabinoid Screen,Urine Negative (Negative); Opiate Screen,Urine Negative (Negative); Phencyclidine Screen,Urine Negative (Negative)
[2019-03-13] MEDS: ENOXAPARIN 30 MG/0.3 ML SYRINGE SUBCUT SCH (21:50)
[2019-03-14] MEDS: ALBUTEROL/IPRATROPIUM 3 ML NEB RESP TX SCH ×6 (00:25→19:44)
[2019-03-14] MEDS: methylPREDNISolone SOD SUC 125 MG/2 ML VIAL IV SCH ×3 (05:40→22:19)
[2019-03-14] MEDS: INSULIN REGULAR 100 UNIT/ML SUBCUT SCH ×3 (05:43→17:38)
[2019-03-14] MEDS: LEVOTHYROXINE 75 MCG TABLET PO SCH (06:20)
[2019-03-14 07:46] LABS: Basophils % 0.1 % (0.0-0.8); Hematocrit 38.2 VOL% (42.0-52.0); Hemoglobin 12.4 GM/DL (14.0-18.0); Immature Granulocytes % 0.8 %; Immature Granulocytes Absolute 0.18 #; Lymphocytes # 0.7 10*3/uL (1.4-4.0); Lymphocytes % 3.3 % (21.2-54.2); Mean Corpuscular HGB Conc 32.5 GM/DL (32-36); Mean Corpuscular Volume 101.1 FL (87-102); Mean Platelet Volume 11.6 FL (9.6-12.0); Monocytes % 4.6 % (1.7-12.7); Neutrophils % 91.2 % (38.7-73.9); Platelet Count 243 T/CUMM (130-400); Red Blood Count 3.78 MC/CUMM (3.8-5.5); White Blood Count 21.5 T/CUMM (4-12)
[2019-03-14 08:01] LABS: Calcium 7.8 MG/DL (8.5-10.1); Osmolality,Calculated 296.5 MOS/KG (273-304)
[2019-03-14] MEDS: CLOPIDOGREL 75 MG TABLET PO SCH (08:28)
[2019-03-14] MEDS: FAMOTIDINE 20 MG/2 ML VIAL IV SCH (08:28)
[2019-03-14] MEDS: CLORAZEPATE 3.75 MG TABLET PO SCH ×2 (08:29→20:04)
[2019-03-14 08:36] LABS: Lymphocytes 2 % (20-55); Segmented Neutrophils 94 % (50-85); Total Cells Counted 100
[2019-03-14] MEDS: hydrALAZINE 20 MG/1 ML VIAL IV PRN (08:36)
[2019-03-14 08:37] LABS: Hypochromasia Slight; Macrocytosis 1+
[2019-03-14 08:38] LABS: Platelet Estimate Normal
[2019-03-14] MEDS ORDERED: cloNIDine 0.3 MG/24 HR PATCH TRANSDERM SCH (10:00)
[2019-03-14] MEDS: AZITHROMYCIN INJ 500 MG in SODIUM CHLORIDE 0.9% 250 ML IV SCH (11:06)
[2019-03-14] MEDS: cefTRIAXone 1,000 MG in SYRINGE 1 EACH IV SCH (11:06)
[2019-03-14] MEDS: NICOTINE 21 MG/24 HR PATCH TRANSDERM SCH (14:22)
[2019-03-14] MEDS: ISOSORBIDE MONONITRATE 60 MG TABLET PO SCH (18:06)
[2019-03-14] MEDS: ENOXAPARIN 30 MG/0.3 ML SYRINGE SUBCUT SCH (19:51)
[2019-03-15] MEDS: ALBUTEROL/IPRATROPIUM 3 ML NEB RESP TX SCH ×7 (00:06→23:11)
[2019-03-15] MEDS: INSULIN REGULAR 100 UNIT/ML SUBCUT SCH ×5 (00:31→22:24)
[2019-03-15] MEDS: methylPREDNISolone SOD SUC 125 MG/2 ML VIAL IV SCH ×3 (05:41→22:26)
[2019-03-15] MEDS: FAMOTIDINE 20 MG/2 ML VIAL IV SCH (08:00)
[2019-03-15] MEDS: LEVOTHYROXINE 75 MCG TABLET PO SCH (08:00)
[2019-03-15] MEDS: CLORAZEPATE 3.75 MG TABLET PO SCH ×2 (09:25→22:25)
[2019-03-15] MEDS: CLOPIDOGREL 75 MG TABLET PO SCH (09:25)
[2019-03-15] MEDS: NICOTINE 21 MG/24 HR PATCH TRANSDERM SCH (09:25)
[2019-03-15] MEDS: cefTRIAXone 1,000 MG in SYRINGE 1 EACH IV SCH (11:00)
[2019-03-15] MEDS: ENOXAPARIN 30 MG/0.3 ML SYRINGE SUBCUT SCH (22:25)
[2019-03-15] MEDS: ISOSORBIDE MONONITRATE 60 MG TABLET PO SCH (22:25)
[2019-03-16] MEDS: ALBUTEROL/IPRATROPIUM 3 ML NEB RESP TX SCH ×3 (03:13→12:35)
[2019-03-16] MEDS: methylPREDNISolone SOD SUC 125 MG/2 ML VIAL IV SCH (06:08)
[2019-03-16 06:32] LABS: Basophils % 0.1 % (0.0-0.8); Hematocrit 32.8 VOL% (42.0-52.0); Hemoglobin 10.7 GM/DL (14.0-18.0); Immature Granulocytes Absolute 0.14 #; Lymphocytes # 0.6 10*3/uL (1.4-4.0); Lymphocytes % 4.1 % (21.2-54.2); Mean Corpuscular HGB Conc 32.6 GM/DL (32-36); Mean Corpuscular Volume 99.4 FL (87-102); Mean Platelet Volume 12.2 FL (9.6-12.0); Monocytes % 6.3 % (1.7-12.7); Neutrophils % 88.5 % (38.7-73.9); Platelet Count 210 T/CUMM (130-400); Red Cell Distribution Width 12.4 % (9.3-17.3); White Blood Count 14.5 T/CUMM (4-12)
[2019-03-16 06:53] LABS: Hypochromasia 1+; Lymphocytes 2 % (20-55); Platelet Estimate Adequate; Segmented Neutrophils 93 % (50-85); Total Cells Counted 100
[2019-03-16 06:54] LABS: Macrocytosis Slight
[2019-03-16 06:59] LABS: Calcium 7.6 MG/DL (8.5-10.1); Osmolality,Calculated 296.8 MOS/KG (273-304)
[2019-03-16] MEDS: cefTRIAXone 1,000 MG in SYRINGE 1 EACH IV SCH (08:32)
[2019-03-16] MEDS: LEVOTHYROXINE 75 MCG TABLET PO SCH (08:33)
[2019-03-16] MEDS: CLOPIDOGREL 75 MG TABLET PO SCH (08:33)
[2019-03-16] MEDS: CLORAZEPATE 3.75 MG TABLET PO SCH (08:33)
[2019-03-16] MEDS: INSULIN REGULAR 100 UNIT/ML SUBCUT SCH (08:34)
[2019-03-16] MEDS: NICOTINE 21 MG/24 HR PATCH TRANSDERM SCH (08:39)
[2019-03-16] MEDS ORDERED: PANTOPRAZOLE 40 MG TABLET PO SCH (09:00)
[2019-03-16 12:14] VITALS: BP 121/57
[2019-03-16] MEDS ORDERED: SEVELAMER CARBONATE 800 MG TABLET PO SCH (17:00)
== END 2019-03-16 13:25 | disposition home health service (06) | DRG 208 ==
LOC: SUATTDRO 18:58 → N.CC 18:58 → N.2E 03-15 16:03
PROVIDERS: ADMIT Family Medicine; ATTEND Internal Medicine

== ENCOUNTER 2019-04-06 15:32 | Inpatient (IN) ==
[2019-04-06] MEDS ORDERED: ONDANSETRON 4 MG/2 ML VIAL IV PRN (20:15)
[2019-04-06] MEDS ORDERED: DEXTROSE 10% 250 ML BAG IV PRN (20:15)
[2019-04-06] MEDS ORDERED: ACETAMINOPHEN 325 MG TABLET PO PRN (20:15)
[2019-04-06] MEDS ORDERED: NICOTINE 21 MG/24 HR PATCH TRANSDERM PRN (20:15)
[2019-04-06] MEDS ORDERED: GLUCAGON 1 MG VIAL IM PRN (20:15)
[2019-04-06] MEDS ORDERED: ALBUTEROL 2.5 MG/3 ML NEB RESP TX PRN (20:27)
[2019-04-06] MEDS ORDERED: FUROSEMIDE 40 MG/4 ML VIAL IV ONE (20:31)
[2019-04-06] MEDS: AZITHROMYCIN INJ 500 MG in SODIUM CHLORIDE 0.9% 250 ML IV SCH (21:10)
[2019-04-06 21:22] LABS: ABG Base Excess 5.1 MMOL/L (-2.5-2.5); ABG HCO3 28.9 MMOL/L (20-26); ABG Oxygen Saturation 96.6 % (95-100); ABG PCO2 44.2 MM HG (35-48); ABG PH 7.438 (7.35-7.45); ABG PO2 82.6 MM HG (80-95); ABG TCO2 26.9 MMOL/L (23-27); Allen Test Positive
[2019-04-06] MEDS: HEPARIN 5,000 UNIT/1 ML VIAL SUBCUT SCH (21:25)
[2019-04-06] MEDS ORDERED: NITROGLYCERIN SL 0.4 MG TABLET SL PRN (21:34)
[2019-04-06 21:42] LABS: Basophils % 0.4 % (0.0-0.8); Eosinophils # 0.1 10*3/uL (0.0-0.87); Eosinophils % 2.3 % (0.00-10.9); Hematocrit 32.8 VOL% (42.0-52.0); Hemoglobin 10.3 GM/DL (14.0-18.0); Immature Granulocytes % 0.2 %; Immature Granulocytes Absolute 0.01 #; Lymphocytes # 0.6 10*3/uL (1.4-4.0); Lymphocytes % 11.1 % (21.2-54.2); Mean Corpuscular HGB Conc 31.4 GM/DL (32-36); Mean Corpuscular Volume 102.2 FL (87-102); Mean Platelet Volume 10.2 FL (9.6-12.0); Monocytes % 5.3 % (1.7-12.7); Neutrophils % 80.7 % (38.7-73.9); Platelet Count 328 T/CUMM (130-400); Red Blood Count 3.21 MC/CUMM (3.8-5.5); Red Cell Distribution Width 13.1 % (9.3-17.3); White Blood Count 5.3 T/CUMM (4-12)
[2019-04-06 22:00] LABS: Albumin 2.4 G/DL (3.4-5.0); Bilirubin,Total 0.6 MG/DL (0.2-1.0); Calcium 7.8 MG/DL (8.5-10.1); Osmolality,Calculated 292.3 MOS/KG (273-304)
[2019-04-06] MEDS: POLYCARBOPHIL 625 MG TABLET PO SCH (23:19)
[2019-04-06] MEDS: RANOLAZINE 500 MG TABLET PO SCH (23:19)
[2019-04-06] MEDS: ISOSORBIDE MONONITRATE 60 MG TABLET PO SCH (23:20)
[2019-04-06] MEDS: ATORVASTATIN 40 MG TABLET PO SCH (23:20)
[2019-04-06] MEDS: INSULIN LISPRO 100 UNIT/ML SUBCUT SCH (23:54)
[2019-04-07] MEDS: ALBUTEROL/IPRATROPIUM 3 ML NEB RESP TX SCH ×4 (01:02→19:57)
[2019-04-07 04:28] LABS: Basophils % 0.2 % (0.0-0.8); Eosinophils # 0.1 10*3/uL (0.0-0.87); Eosinophils % 2.7 % (0.00-10.9); Hematocrit 32.9 VOL% (42.0-52.0); Hemoglobin 10.3 GM/DL (14.0-18.0); Immature Granulocytes % 0.2 %; Immature Granulocytes Absolute 0.01 #; Lymphocytes # 0.8 10*3/uL (1.4-4.0); Lymphocytes % 17.7 % (21.2-54.2); Mean Corpuscular HGB Conc 31.3 GM/DL (32-36); Mean Corpuscular Volume 102.8 FL (87-102); Mean Platelet Volume 10.1 FL (9.6-12.0); Monocytes % 8.4 % (1.7-12.7); Neutrophils % 70.8 % (38.7-73.9); Platelet Count 328 T/CUMM (130-400); Red Cell Distribution Width 13.1 % (9.3-17.3); White Blood Count 4.5 T/CUMM (4-12)
[2019-04-07 05:08] LABS: Calcium 7.8 MG/DL (8.5-10.1); Osmolality,Calculated 289.5 MOS/KG (273-304); Thyroid Stimulating Hormone 1.26 uIU/ml (0.358-3.74)
[2019-04-07] MEDS: HEPARIN 5,000 UNIT/1 ML VIAL SUBCUT SCH ×3 (06:36→21:12)
[2019-04-07] MEDS: LEVOTHYROXINE 75 MCG TABLET PO SCH (06:38)
[2019-04-07 07:13] LABS: Folate 14.8 NG/ML (5.4-24.0)
[2019-04-07] MEDS ORDERED: glipiZIDE 5 MG TABLET PO SCH (07:30)
[2019-04-07] MEDS: INSULIN LISPRO 100 UNIT/ML SUBCUT SCH ×4 (08:25→21:12)
[2019-04-07] MEDS ORDERED: CLOPIDOGREL 75 MG TABLET PO SCH (09:00)
[2019-04-07] MEDS: FINASTERIDE 5 MG TABLET PO SCH (09:11)
[2019-04-07] MEDS: METOPROLOL SUCCINATE XL 100 MG TABLET PO SCH (09:11)
[2019-04-07] MEDS: predniSONE 20 MG TABLET PO SCH (09:11)
[2019-04-07] MEDS: POLYCARBOPHIL 625 MG TABLET PO SCH ×2 (09:11→21:03)
[2019-04-07] MEDS: ASCORBIC ACID 500 MG TABLET PO SCH (09:12)
[2019-04-07] MEDS: TAMSULOSIN 0.4 MG CAPSULE PO SCH (09:12)
[2019-04-07] MEDS: PANTOPRAZOLE 40 MG TABLET PO SCH (09:12)
[2019-04-07] MEDS: ASPIRIN EC 81 MG TABLET PO SCH (09:12)
[2019-04-07] MEDS: RANOLAZINE 500 MG TABLET PO SCH ×2 (09:12→21:03)
[2019-04-07] MEDS ORDERED: HEPARIN 10,000 UNIT/10 ML VIAL IV PRN (11:24)
[2019-04-07 12:29] LABS: Hepatitis B Core IgM Quant 0.17 Index; Hepatitis C Virus Ab Quant 0.05 Index; Hepatitis C Virus Ab Result Negative (Negative)
[2019-04-07] MEDS: ISOSORBIDE MONONITRATE 60 MG TABLET PO SCH (18:09)
[2019-04-07] MEDS: cefTRIAXone 1,000 MG in SYRINGE 1 EACH IV SCH (21:03)
[2019-04-07] MEDS: ATORVASTATIN 40 MG TABLET PO SCH (21:03)
[2019-04-07] MEDS: DIVALPROEX 500 MG TABLET PO SCH (21:03)
[2019-04-07] MEDS: AZITHROMYCIN INJ 500 MG in SODIUM CHLORIDE 0.9% 250 ML IV SCH (21:06)
[2019-04-08] MEDS: ALBUTEROL/IPRATROPIUM 3 ML NEB RESP TX SCH ×4 (00:59→19:30)
[2019-04-08 06:14] LABS: Basophils % 0.5 % (0.0-0.8); Hematocrit 32.7 VOL% (42.0-52.0); Hemoglobin 10.5 GM/DL (14.0-18.0); Immature Granulocytes % 0.2 %; Immature Granulocytes Absolute 0.01 #; Lymphocytes # 0.6 10*3/uL (1.4-4.0); Mean Corpuscular HGB Conc 32.1 GM/DL (32-36); Mean Corpuscular Volume 101.9 FL (87-102); Mean Platelet Volume 10.6 FL (9.6-12.0); Monocytes % 7.7 % (1.7-12.7); Neutrophils % 76.6 % (38.7-73.9); Platelet Count 324 T/CUMM (130-400); Red Blood Count 3.21 MC/CUMM (3.8-5.5); Red Cell Distribution Width 12.9 % (9.3-17.3)
[2019-04-08] MEDS: HEPARIN 5,000 UNIT/1 ML VIAL SUBCUT SCH ×3 (06:23→21:06)
[2019-04-08] MEDS: LEVOTHYROXINE 75 MCG TABLET PO SCH (06:23)
[2019-04-08 06:50] LABS: Calcium 7.7 MG/DL (8.5-10.1); Osmolality,Calculated 290.5 MOS/KG (273-304)
[2019-04-08] MEDS: INSULIN LISPRO 100 UNIT/ML SUBCUT SCH ×3 (09:40→17:07)
[2019-04-08] MEDS: DIVALPROEX 500 MG TABLET PO SCH ×2 (09:42→21:06)
[2019-04-08] MEDS: ASCORBIC ACID 500 MG TABLET PO SCH (09:42)
[2019-04-08] MEDS: POLYCARBOPHIL 625 MG TABLET PO SCH ×2 (09:42→21:06)
[2019-04-08] MEDS: predniSONE 20 MG TABLET PO SCH (09:42)
[2019-04-08] MEDS: RANOLAZINE 500 MG TABLET PO SCH ×2 (09:42→21:06)
[2019-04-08] MEDS: FINASTERIDE 5 MG TABLET PO SCH (09:42)
[2019-04-08] MEDS: PANTOPRAZOLE 40 MG TABLET PO SCH (09:42)
[2019-04-08] MEDS: TAMSULOSIN 0.4 MG CAPSULE PO SCH (09:42)
[2019-04-08] MEDS: ASPIRIN EC 81 MG TABLET PO SCH (09:42)
[2019-04-08] MEDS: METOPROLOL SUCCINATE XL 100 MG TABLET PO SCH (09:43)
[2019-04-08] MEDS ORDERED: MYLANTA/LIDO VISC/NYST 180 ML BOTTLE SWISH/SWAL PRN (12:24)
[2019-04-08] MEDS: ISOSORBIDE MONONITRATE 60 MG TABLET PO SCH (21:06)
[2019-04-08] MEDS: ATORVASTATIN 40 MG TABLET PO SCH (21:06)
[2019-04-08] MEDS: cefTRIAXone 1,000 MG in SYRINGE 1 EACH IV SCH (21:08)
[2019-04-08] MEDS: AZITHROMYCIN INJ 500 MG in SODIUM CHLORIDE 0.9% 250 ML IV SCH (21:08)
[2019-04-09] MEDS: INSULIN LISPRO 100 UNIT/ML SUBCUT SCH ×3 (00:57→13:04)
[2019-04-09] MEDS: ALBUTEROL/IPRATROPIUM 3 ML NEB RESP TX SCH ×3 (01:11→14:29)
[2019-04-09 04:42] LABS: Hematocrit 33.8 VOL% (42.0-52.0); Hemoglobin 10.8 GM/DL (14.0-18.0); Immature Granulocytes % 0.3 %; Immature Granulocytes Absolute 0.02 #; Lymphocytes # 0.7 10*3/uL (1.4-4.0); Lymphocytes % 11.6 % (21.2-54.2); Mean Corpuscular Volume 101.8 FL (87-102); Mean Platelet Volume 10.5 FL (9.6-12.0); Monocytes % 5.5 % (1.7-12.7); Neutrophils % 82.6 % (38.7-73.9); Platelet Count 347 T/CUMM (130-400); Red Blood Count 3.32 MC/CUMM (3.8-5.5); Red Cell Distribution Width 12.8 % (9.3-17.3); White Blood Count 6.4 T/CUMM (4-12)
[2019-04-09 05:04] LABS: Calcium 7.6 MG/DL (8.5-10.1); Osmolality,Calculated 294.5 MOS/KG (273-304)
[2019-04-09] MEDS: HEPARIN 5,000 UNIT/1 ML VIAL SUBCUT SCH (06:33)
[2019-04-09] MEDS: LEVOTHYROXINE 75 MCG TABLET PO SCH (06:34)
[2019-04-09] MEDS: PANTOPRAZOLE 40 MG TABLET PO SCH (08:49)
[2019-04-09] MEDS: predniSONE 20 MG TABLET PO SCH (08:49)
[2019-04-09] MEDS: ASPIRIN EC 81 MG TABLET PO SCH (08:49)
[2019-04-09] MEDS: RANOLAZINE 500 MG TABLET PO SCH (08:49)
[2019-04-09] MEDS: ASCORBIC ACID 500 MG TABLET PO SCH (08:50)
[2019-04-09] MEDS: TAMSULOSIN 0.4 MG CAPSULE PO SCH (08:50)
[2019-04-09] MEDS: METOPROLOL SUCCINATE XL 100 MG TABLET PO SCH (08:50)
[2019-04-09] MEDS: DIVALPROEX 500 MG TABLET PO SCH (08:51)
[2019-04-09] MEDS: POLYCARBOPHIL 625 MG TABLET PO SCH (08:51)
[2019-04-09] MEDS: FINASTERIDE 5 MG TABLET PO SCH (08:51)
[2019-04-09 12:27] VITALS: BP 132/63
[2019-04-12] MEDS ORDERED: ERGOCALCIFEROL 50,000 UNIT CAPSULE PO SCH (09:00)
== END 2019-04-09 14:43 | disposition home or self-care (01) | DRG 190 ==
LOC: N.2E → SUATTDRO 04-07 14:42
PROVIDERS: ADMIT Internal Medicine; ATTEND Internal Medicine

== ENCOUNTER 2019-04-23 20:18 | Inpatient (IN) ==
[2019-04-23] MEDS ORDERED: DEXTROSE 50% 25 GM/50 ML VIAL IV PRN (23:14)
[2019-04-23] MEDS ORDERED: ACETAMINOPHEN 325 MG TABLET PO PRN (23:14)
[2019-04-23] MEDS ORDERED: MORPHINE 4 MG/1 ML VIAL IV PRN (23:14)
[2019-04-23] MEDS ORDERED: NICOTINE 21 MG/24 HR PATCH TRANSDERM PRN (23:14)
[2019-04-23] MEDS ORDERED: ONDANSETRON 4 MG/2 ML VIAL IV PRN (23:14)
[2019-04-23] MEDS ORDERED: diphenhydrAMINE CAP 25 MG CAPSULE PO PRN (23:14)
[2019-04-23] MEDS ORDERED: BISACODYL 5 MG TABLET PO PRN (23:14)
[2019-04-23] MEDS ORDERED: GLUCAGON 1 MG VIAL IM PRN (23:14)
[2019-04-23] MEDS ORDERED: LEVOFLOXACIN INJ 750 MG in PREMIX 1 EACH IV SCH (23:30)
[2019-04-23 23:54] LABS: Basophils % 0.1 % (0.0-0.8); Hematocrit 34.2 VOL% (42.0-52.0); Immature Granulocytes % 0.4 %; Immature Granulocytes Absolute 0.07 #; Lymphocytes # 0.4 10*3/uL (1.4-4.0); Mean Corpuscular HGB Conc 32.2 GM/DL (32-36); Neutrophils % 96.5 % (38.7-73.9); Platelet Count 234 T/CUMM (130-400); Red Blood Count 3.42 MC/CUMM (3.8-5.5); Red Cell Distribution Width 13.9 % (9.3-17.3); White Blood Count 18.1 T/CUMM (4-12)
[2019-04-24 00:15] LABS: Albumin 2.6 G/DL (3.4-5.0); Bilirubin,Total 0.4 MG/DL (0.2-1.0); Calcium 8.4 MG/DL (8.5-10.1); Total Protein 6.3 G/DL (6.4-8.3)
[2019-04-24 00:22] LABS: Anisocytosis 1+; Lymphocytes 3 % (20-55); Segmented Neutrophils 97 % (50-85); Total Cells Counted 100
[2019-04-24 00:23] LABS: Platelet Estimate Adequate
[2019-04-24] MEDS ORDERED: LEVOFLOXACIN INJ 750 MG in PREMIX 1 EACH IV ONE (00:30)
[2019-04-24] MEDS: ALBUTEROL/IPRATROPIUM 3 ML NEB RESP TX SCH ×4 (00:58→19:45)
[2019-04-24] MEDS: FUROSEMIDE 40 MG/4 ML VIAL IV SCH ×2 (08:21→16:06)
[2019-04-24] MEDS: METOPROLOL TARTRATE 100 MG TABLET PO SCH ×2 (08:21→22:45)
[2019-04-24] MEDS: ISOSORBIDE MONONITRATE 60 MG TABLET PO SCH (08:21)
[2019-04-24] MEDS: INSULIN REGULAR 100 UNIT/ML SUBCUT SCH ×4 (09:16→21:18)
[2019-04-24] MEDS ORDERED: predniSONE 20 MG TABLET PO SCH (12:00)
[2019-04-24] MEDS ORDERED: HEPARIN 10,000 UNIT/10 ML VIAL IV PRN (12:07)
[2019-04-24] MEDS ORDERED: VANCOMYCIN INJ 1,000 MG in SODIUM CHLORIDE 0.9% 250 ML IV ONE (17:19)
[2019-04-24 18:52] LABS: Apearance,Urine CLEAR (Clear); Bilirubin,Urine Negative (Negative); Blood, Urine Negative (Negative); Glucose,Urine (UA) 150 mg/dL (Negative); Hyaline Casts,Urine 1 /LPF (0-3); Ketones,Urine 5 mg/dL (Negative); Mucus,Urine Occasional /LPF (Occasional); Nitrite,Urine Negative (Negative); Protein,Urine >=500 MG/DL; RBC,Urine 4 /HPF (0-4); Urine Color Yellow (Yellow); Urine Specific Gravity 1.023 (1.001-1.035); Urine Urobilinogen < 2.0 EU/DL (0.2-1.0); WBC,Urine 6 /HPF (0-6)
[2019-04-24] MEDS ORDERED: METOPROLOL TARTRATE 100 MG TABLET PO SCH (23:23)
[2019-04-24] MEDS ORDERED: ISOSORBIDE MONONITRATE 60 MG TABLET PO SCH (23:24)
[2019-04-25] MEDS: ALBUTEROL/IPRATROPIUM 3 ML NEB RESP TX SCH ×4 (01:24→19:17)
[2019-04-25] MEDS ORDERED: VANCOMYCIN INJ 750 MG in SODIUM CHLORIDE 0.9% 250 ML IV PRN (07:57)
[2019-04-25] MEDS ORDERED: VANCOMYCIN INJ 1,000 MG in SODIUM CHLORIDE 0.9% 250 ML IV ONE (08:00)
[2019-04-25] MEDS: predniSONE 20 MG TABLET PO SCH (08:54)
[2019-04-25] MEDS: ISOSORBIDE MONONITRATE 60 MG TABLET PO SCH (08:54)
[2019-04-25] MEDS: METOPROLOL TARTRATE 100 MG TABLET PO SCH ×2 (08:55→20:25)
[2019-04-25] MEDS: INSULIN REGULAR 100 UNIT/ML SUBCUT SCH ×4 (09:00→20:25)
[2019-04-26] MEDS: ALBUTEROL/IPRATROPIUM 3 ML NEB RESP TX SCH ×4 (00:17→19:39)
[2019-04-26] MEDS: LEVOFLOXACIN INJ 500 MG in PREMIX 1 EACH IV SCH (01:28)
[2019-04-26] MEDS ORDERED: cloNIDine 0.1 MG TABLET PO ONE (05:15)
[2019-04-26 05:23] LABS: Basophils % 0.2 % (0.0-0.8); Eosinophils % 0.1 % (0.00-10.9); Hematocrit 36.6 VOL% (42.0-52.0); Hemoglobin 11.6 GM/DL (14.0-18.0); Immature Granulocytes % 0.7 %; Immature Granulocytes Absolute 0.11 #; Lymphocytes # 1.9 10*3/uL (1.4-4.0); Lymphocytes % 11.3 % (21.2-54.2); Mean Corpuscular HGB Conc 31.7 GM/DL (32-36); Mean Corpuscular Volume 102.2 FL (87-102); Monocytes % 8.2 % (1.7-12.7); Neutrophils % 79.5 % (38.7-73.9); Platelet Count 167 T/CUMM (130-400); Red Blood Count 3.58 MC/CUMM (3.8-5.5); Red Cell Distribution Width 14.1 % (9.3-17.3); White Blood Count 16.3 T/CUMM (4-12)
[2019-04-26 06:45] LABS: Calcium 8.6 MG/DL (8.5-10.1); Osmolality,Calculated 300.1 MOS/KG (273-304); Risk Ratio 2.24; VLDL CHOLESTEROL 24.2 MG/DL
[2019-04-26 06:58] LABS: Hypochromasia 1+; Lymphocytes 16 % (20-55); Ovalocytes Slight; Platelet Estimate Adequate; Segmented Neutrophils 81 % (50-85); Total Cells Counted 100
[2019-04-26] MEDS: INSULIN REGULAR 100 UNIT/ML SUBCUT SCH ×4 (08:05→20:38)
[2019-04-26] MEDS: METOPROLOL TARTRATE 100 MG TABLET PO SCH ×2 (08:05→20:39)
[2019-04-26] MEDS: predniSONE 20 MG TABLET PO SCH (08:05)
[2019-04-26] MEDS: ISOSORBIDE MONONITRATE 60 MG TABLET PO SCH (08:05)
[2019-04-26] MEDS ORDERED: VANCOMYCIN INJ 750 MG in SODIUM CHLORIDE 0.9% 250 ML IV ONE (17:00)
[2019-04-27] MEDS: ALBUTEROL/IPRATROPIUM 3 ML NEB RESP TX SCH ×4 (00:45→19:09)
[2019-04-27] MEDS ORDERED: MIDAZOLAM 2 MG/2 ML VIAL ONE (06:59)
[2019-04-27] MEDS ORDERED: PROMETHAZINE 25 MG/1 ML VIAL IM ONE (07:00)
[2019-04-27] MEDS ORDERED: MEPERIDINE 50 MG/1 ML VIAL IM ONE (07:00)
[2019-04-27] MEDS ORDERED: LIDOCAINE 2% 20 ML VIAL RESP TX ONE (07:30)
[2019-04-27] MEDS ORDERED: MIDAZOLAM 2 MG/2 ML VIAL IV ONE (07:30)
[2019-04-27] MEDS ORDERED: LIDOCAINE 1% 20 ML VIAL MISC INJ ONE (07:30)
[2019-04-27] MEDS ORDERED: LIDOCAINE 2% VISCOUS 100 ML BOTTLE SWISH/SPIT ONE (07:30)
[2019-04-27] MEDS: INSULIN REGULAR 100 UNIT/ML SUBCUT SCH ×4 (08:00→21:43)
[2019-04-27] MEDS: predniSONE 20 MG TABLET PO SCH (10:33)
[2019-04-27] MEDS: ISOSORBIDE MONONITRATE 60 MG TABLET PO SCH (10:33)
[2019-04-27] MEDS: METOPROLOL TARTRATE 100 MG TABLET PO SCH ×2 (10:34→21:42)
[2019-04-27] MEDS: LEVOFLOXACIN INJ 500 MG in PREMIX 1 EACH IV SCH (23:57)
[2019-04-28] MEDS: ALBUTEROL/IPRATROPIUM 3 ML NEB RESP TX SCH ×4 (00:45→19:36)
[2019-04-28] MEDS: predniSONE 20 MG TABLET PO SCH (08:45)
[2019-04-28] MEDS: METOPROLOL TARTRATE 100 MG TABLET PO SCH ×2 (08:45→20:53)
[2019-04-28] MEDS: INSULIN REGULAR 100 UNIT/ML SUBCUT SCH ×4 (08:45→20:52)
[2019-04-28] MEDS: ISOSORBIDE MONONITRATE 60 MG TABLET PO SCH (08:46)
[2019-04-28] MEDS ORDERED: FLUCONAZOLE 200 MG TABLET PO ONE (13:22)
[2019-04-28] MEDS: NYSTATIN 500,000 UNIT/5 ML UDCUP SWISH/SWAL SCH ×2 (16:30→20:53)
[2019-04-29] MEDS: ALBUTEROL/IPRATROPIUM 3 ML NEB RESP TX SCH ×2 (00:16→07:30)
[2019-04-29] MEDS: NYSTATIN 500,000 UNIT/5 ML UDCUP SWISH/SWAL SCH ×2 (08:36→12:40)
[2019-04-29] MEDS: predniSONE 20 MG TABLET PO SCH (08:37)
[2019-04-29] MEDS: METOPROLOL TARTRATE 100 MG TABLET PO SCH (08:37)
[2019-04-29] MEDS: ISOSORBIDE MONONITRATE 60 MG TABLET PO SCH (08:37)
[2019-04-29] MEDS: INSULIN REGULAR 100 UNIT/ML SUBCUT SCH ×2 (08:38→12:41)
[2019-04-29 12:23] VITALS: BP 140/70
[2019-04-29] MEDS ORDERED: LEVOFLOXACIN 500 MG TABLET PO ONE (12:29)
== END 2019-04-29 13:52 | disposition home health service (06) | DRG 193 ==
LOC: N.5E → SUATTDRO 04-24 09:35
PROVIDERS: ADMIT Internal Medicine; ATTEND Internal Medicine

== ENCOUNTER 2019-05-11 15:09 | Inpatient (IN) ==
[2019-05-11] MEDS ORDERED: DIPH/TET/ACEL PERT BOOSTER VACCINE 0.5 ML VIAL IM ONE (15:15)
[2019-05-11] MEDS ORDERED: HYDROmorphone 2 MG/1 ML VIAL IV STA (15:15)
[2019-05-11 15:31] LABS: Basophils # 0.1 10*3/uL (0.0-0.2); Basophils % 0.4 % (0.0-0.8); Eosinophils # 0.4 10*3/uL (0.0-0.87); Eosinophils % 1.9 % (0.00-10.9); Hematocrit 36.5 VOL% (42.0-52.0); Hemoglobin 11.9 GM/DL (14.0-18.0); Immature Granulocytes % 0.5 %; Immature Granulocytes Absolute 0.09 #; Lymphocytes # 2.3 10*3/uL (1.4-4.0); Lymphocytes % 11.9 % (21.2-54.2); Mean Corpuscular HGB Conc 32.6 GM/DL (32-36); Mean Corpuscular Volume 96.8 FL (87-102); Mean Platelet Volume 10.6 FL (9.6-12.0); Monocytes % 4.9 % (1.7-12.7); Neutrophils % 80.4 % (38.7-73.9); Platelet Count 258 T/CUMM (130-400); Red Blood Count 3.77 MC/CUMM (3.8-5.5); Red Cell Distribution Width 14.7 % (9.3-17.3); White Blood Count 18.9 T/CUMM (4-12)
[2019-05-11 15:52] LABS: Alanine Aminotransferase 9 U/L (16-61); Albumin 2.6 G/DL (3.4-5.0); Alkaline Phosphatase 76 U/L (45-117); Amylase 53 U/L (25-115); Aspartate Amino Transferase 11 U/L (0-37); Blood Urea Nitrogen 40 MG/DL (7-18); Calcium 7.6 MG/DL (8.5-10.1); Estimated Glom Filtration Rate 16 ML/MIN; Glucose 78 MG/DL (74-106); Osmolality,Calculated 283.7 MOS/KG (273-304); Total Protein 5.6 G/DL (6.4-8.3)
[2019-05-11] MEDS ORDERED: CLINDAMYCIN INJ 900 MG in PREMIX 1 EACH IV ONE (15:59)
[2019-05-11] MEDS ORDERED: BUPIVACAINE 0.5% /EPI 10 ML VIAL ONE (16:35)
[2019-05-11] MEDS ORDERED: LIDOCAINE 1%/EPI INJ 20 ML VIAL ONE (16:35)
[2019-05-11] MEDS ORDERED: BUPIVACAINE 0.5% 50 ML VIAL ONE (16:35)
[2019-05-11] MEDS ORDERED: HEPARIN 5,000 UNIT/1 ML VIAL ONE (16:36)
[2019-05-11] MEDS ORDERED: LIDOCAINE 1% 20 ML VIAL ONE (16:36)
[2019-05-11] MEDS ORDERED: CALCIUM CHLORIDE 1,000 MG/10 ML VIAL IV ONE (16:37)
[2019-05-11] MEDS ORDERED: DEXTROSE 50% 25 GM/50 ML VIAL IV ONE (16:50)
[2019-05-11] MEDS ORDERED: CLINDAMYCIN INJ 50 ML IV ONE (17:06)
[2019-05-11] MEDS ORDERED: KETAMINE 500 MG/10 ML VIAL ONE (18:23)
[2019-05-11] MEDS ORDERED: SODIUM CHLORIDE 0.9% 500 ML IV ONE (18:24)
[2019-05-11] MEDS ORDERED: PROPOFOL 200 MG/20 ML VIAL IV ONE (18:24)
[2019-05-11] MEDS ORDERED: MIDAZOLAM 2 MG/2 ML VIAL ONE (18:24)
[2019-05-11] MEDS ORDERED: PHENYLEPHRINE 1 MG/10 ML SYRINGE IV ONE (18:24)
[2019-05-11] MEDS ORDERED: PHENYLEPHRINE DRIP 20 MG/250 ML PREMIX IV ONE (18:24)
[2019-05-11] MEDS ORDERED: GLUCAGON 1 MG VIAL IM PRN (18:32)
[2019-05-11] MEDS ORDERED: HYDROmorphone 2 MG/1 ML VIAL IV PRN (18:32)
[2019-05-11] MEDS ORDERED: PROMETHAZINE 25 MG/1 ML VIAL IM PRN (18:32)
[2019-05-11] MEDS ORDERED: DEXTROSE 50% 25 GM/50 ML VIAL IV PRN (18:32)
[2019-05-11] MEDS ORDERED: ONDANSETRON 4 MG/2 ML VIAL IV PRN (18:32)
[2019-05-11 19:15] LABS: Basophils # 0.1 10*3/uL (0.0-0.2); Basophils % 0.4 % (0.0-0.8); Eosinophils # 0.2 10*3/uL (0.0-0.87); Eosinophils % 1.9 % (0.00-10.9); Hematocrit 35.5 VOL% (42.0-52.0); Hemoglobin 11.2 GM/DL (14.0-18.0); Immature Granulocytes % 0.5 %; Immature Granulocytes Absolute 0.06 #; Lymphocytes # 1.9 10*3/uL (1.4-4.0); Lymphocytes % 15.4 % (21.2-54.2); Mean Corpuscular HGB Conc 31.5 GM/DL (32-36); Mean Corpuscular Volume 98.9 FL (87-102); Mean Platelet Volume 10.5 FL (9.6-12.0); Monocytes % 5.2 % (1.7-12.7); Neutrophils % 76.6 % (38.7-73.9); Platelet Count 225 T/CUMM (130-400); Red Blood Count 3.59 MC/CUMM (3.8-5.5); Red Cell Distribution Width 14.9 % (9.3-17.3); White Blood Count 12.3 T/CUMM (4-12)
[2019-05-11] MEDS: INSULIN REGULAR 100 UNIT/ML SUBCUT SCH (20:17)
[2019-05-12] MEDS ORDERED: cloNIDine 0.1 MG TABLET PO PRN (00:42)
[2019-05-12 05:11] LABS: Basophils % 0.4 % (0.0-0.8); Eosinophils # 0.3 10*3/uL (0.0-0.87); Eosinophils % 2.5 % (0.00-10.9); Hematocrit 33.1 VOL% (42.0-52.0); Hemoglobin 10.7 GM/DL (14.0-18.0); Immature Granulocytes % 0.4 %; Immature Granulocytes Absolute 0.04 #; Lymphocytes # 2.2 10*3/uL (1.4-4.0); Lymphocytes % 20.2 % (21.2-54.2); Mean Corpuscular HGB Conc 32.3 GM/DL (32-36); Mean Corpuscular Volume 97.9 FL (87-102); Mean Platelet Volume 11.3 FL (9.6-12.0); Monocytes % 9.1 % (1.7-12.7); Neutrophils % 67.4 % (38.7-73.9); Platelet Count 229 T/CUMM (130-400); Red Blood Count 3.38 MC/CUMM (3.8-5.5); Red Cell Distribution Width 14.8 % (9.3-17.3); White Blood Count 10.9 T/CUMM (4-12)
[2019-05-12 05:37] LABS: Calcium 8.4 MG/DL (8.5-10.1); Osmolality,Calculated 291.4 MOS/KG (273-304)
[2019-05-12] MEDS ORDERED: NITROGLYCERIN SL 0.4 MG TABLET SL PRN (09:20)
[2019-05-12] MEDS ORDERED: ACETYLCYSTEINE 20% 800 MG/4 ML VIAL RESP TX PRN (09:20)
[2019-05-12] MEDS: INSULIN REGULAR 100 UNIT/ML SUBCUT SCH ×4 (09:41→20:49)
[2019-05-12] MEDS: DIVALPROEX 500 MG TABLET PO SCH ×2 (10:12→20:49)
[2019-05-12] MEDS: METOPROLOL SUCCINATE XL 100 MG TABLET PO SCH (10:13)
[2019-05-12] MEDS: ASCORBIC ACID 500 MG TABLET PO SCH (10:14)
[2019-05-12] MEDS: FINASTERIDE 5 MG TABLET PO SCH (10:14)
[2019-05-12] MEDS: RANOLAZINE 500 MG TABLET PO SCH ×2 (10:15→20:49)
[2019-05-12] MEDS: SEVELAMER CARBONATE 800 MG TABLET PO SCH ×4 (10:15→21:40)
[2019-05-12] MEDS: CLOPIDOGREL 75 MG TABLET PO SCH (10:16)
[2019-05-12] MEDS: PANTOPRAZOLE 40 MG TABLET PO SCH (10:16)
[2019-05-12] MEDS: FUROSEMIDE 40 MG TABLET PO SCH (10:17)
[2019-05-12] MEDS: POLYCARBOPHIL 625 MG TABLET PO SCH ×2 (10:17→20:54)
[2019-05-12] MEDS: TAMSULOSIN 0.4 MG CAPSULE PO SCH (10:17)
[2019-05-12] MEDS: DOCUSATE SODIUM 100 MG CAPSULE PO SCH (10:18)
[2019-05-12] MEDS: ASPIRIN EC 81 MG TABLET PO SCH (10:18)
[2019-05-12] MEDS: SODIUM POLYSTYRENE SULFATE 15 GM/60 ML BOTTLE PO SCH (10:19)
[2019-05-12] MEDS: ALBUTEROL/IPRATROPIUM 3 ML NEB RESP TX SCH ×2 (15:40→19:24)
[2019-05-12] MEDS ORDERED: ISOSORBIDE MONONITRATE 60 MG TABLET PO SCH (19:00)
[2019-05-12] MEDS ORDERED: ATORVASTATIN 80 MG TABLET PO SCH (21:00)
[2019-05-13] MEDS: ALBUTEROL/IPRATROPIUM 3 ML NEB RESP TX SCH ×2 (02:10→07:24)
[2019-05-13] MEDS: SEVELAMER CARBONATE 800 MG TABLET PO SCH ×2 (06:37→11:08)
[2019-05-13] MEDS ORDERED: LEVOTHYROXINE 75 MCG TABLET PO SCH (07:00)
[2019-05-13 07:58] VITALS: BP 133/73
[2019-05-13] MEDS: INSULIN REGULAR 100 UNIT/ML SUBCUT SCH (08:25)
[2019-05-13] MEDS: FINASTERIDE 5 MG TABLET PO SCH (08:40)
[2019-05-13] MEDS: ASCORBIC ACID 500 MG TABLET PO SCH (08:40)
[2019-05-13] MEDS: TAMSULOSIN 0.4 MG CAPSULE PO SCH (08:40)
[2019-05-13] MEDS: METOPROLOL SUCCINATE XL 100 MG TABLET PO SCH (08:40)
[2019-05-13] MEDS: DIVALPROEX 500 MG TABLET PO SCH (08:40)
[2019-05-13] MEDS: SODIUM POLYSTYRENE SULFATE 15 GM/60 ML BOTTLE PO SCH (08:40)
[2019-05-13] MEDS: FUROSEMIDE 40 MG TABLET PO SCH (08:40)
[2019-05-13] MEDS: POLYCARBOPHIL 625 MG TABLET PO SCH (08:40)
[2019-05-13] MEDS: PANTOPRAZOLE 40 MG TABLET PO SCH (08:40)
[2019-05-13] MEDS: RANOLAZINE 500 MG TABLET PO SCH (08:40)
[2019-05-13] MEDS: DOCUSATE SODIUM 100 MG CAPSULE PO SCH (08:40)
[2019-05-13] MEDS: ASPIRIN EC 81 MG TABLET PO SCH (08:41)
[2019-05-13] MEDS: CLOPIDOGREL 75 MG TABLET PO SCH (08:41)
[2019-05-17] MEDS ORDERED: ERGOCALCIFEROL 50,000 UNIT CAPSULE PO SCH (09:20)
== END 2019-05-13 11:08 | disposition home or self-care (01) | DRG 252 ==
LOC: EDUNIT# → EDBD → N.ED 15:09 → N.EDINP 16:07 → N.3E 16:55 → N.ICU 18:23 → N.3E 05-12 18:02
PROVIDERS: ADMIT Surgery; ATTEND Surgery

== ENCOUNTER 2020-04-21 15:39 | Observation (INO) ==
[2020-04-21 19:11] LABS: Basophils % 0.4 % (0.0-0.8); Eosinophils # 0.3 10*3/uL (0.0-0.87); Eosinophils % 3.2 % (0.00-10.9); Hematocrit 28.9 VOL% (42.0-52.0); Hemoglobin 9.5 GM/DL (14.0-18.0); Immature Granulocytes % 0.3 %; Immature Granulocytes Absolute 0.03 #; Lymphocytes # 1.7 10*3/uL (1.4-4.0); Lymphocytes % 16.1 % (21.2-54.2); Mean Corpuscular HGB Conc 32.9 GM/DL (32-36); Mean Corpuscular Volume 113.8 FL (87-102); Mean Platelet Volume 10.5 FL (9.6-12.0); Monocytes % 12.5 % (1.7-12.7); NRBC # 0.02 10*3/uL; Neutrophils % 67.5 % (38.7-73.9); Platelet Count 208 T/CUMM (130-400); Red Blood Count 2.54 MC/CUMM (3.8-5.5); Red Cell Distribution Width 14.6 % (9.3-17.3); White Blood Count 10.4 T/CUMM (4-12)
[2020-04-21 19:25] LABS: Acetaminophen 4.1 UG/ML (10-30); Salicylate < 2.8 MG/DL (2.8-20)
[2020-04-21 19:27] LABS: PT Patient Result 10.3 SECS (9.8-11.9); Partial Thromboplastin Time 27.5 SECS (23.9-33.8)
[2020-04-21 19:35] LABS: Alanine Aminotransferase < 9 U/L (16-61); Albumin 2.9 G/DL (3.4-5.0); Alkaline Phosphatase 67 U/L (45-117); Aspartate Amino Transferase 19 U/L (0-37); Bilirubin,Total < 0.39 MG/DL (0.2-1.0); Blood Urea Nitrogen 66 MG/DL (7-18); Calcium 8.1 MG/DL (8.5-10.1); Estimated Glom Filtration Rate 7 ML/MIN; Glucose 56 MG/DL (74-106); Osmolality,Calculated 286.1 MOS/KG (273-304); Thyroid Stimulating Hormone 0.208 uIU/ml (0.358-3.74); Total Protein 6.6 G/DL (6.4-8.3)
[2020-04-21 20:14] LABS: ABG Base Excess 3.2 MMOL/L (-2.5-2.5); ABG HCO3 27.2 MMOL/L (20-26); ABG Oxygen Saturation 91.5 % (95-100); ABG PCO2 48.6 MM HG (35-48); ABG PH 7.383 (7.35-7.45); ABG PO2 68.5 MM HG (80-95); ABG TCO2 26.6 MMOL/L (23-27)
[2020-04-21 20:58] LABS: Bacteria,Urine Occasional /HPF (Few); Bilirubin,Urine Negative (Negative); Blood, Urine Negative (Negative); Glucose,Urine (UA) Negative (Negative); Hyaline Casts,Urine 1 /LPF (0-3); Ketones,Urine Negative (Negative); Mucus,Urine Occasional /LPF (Occasional); Nitrite,Urine Negative (Negative); Protein,Urine 100 MG/DL; RBC,Urine 3 /HPF (0-4); Urine Appearance CLEAR (Clear); Urine Color Yellow (Yellow); Urine Specific Gravity 1.017 (1.001-1.035); Urine Urobilinogen < 2.0 EU/DL (0.2-1.0); WBC,Urine 2 /HPF (0-6)
[2020-04-21] MEDS ORDERED: FUROSEMIDE 40 MG/4 ML VIAL IV STA (21:12)
[2020-04-21] MEDS ORDERED: DEXTROSE 50% 25 GM/50 ML VIAL IV STA (21:14)
[2020-04-21 21:15] LABS: Barbiturates Screen,Urine Negative (Negative); Benzodiazepines Screen,Urine Negative (Negative); Cannabinoid Screen,Urine Negative (Negative); Opiate Screen,Urine Positive (Negative); Phencyclidine Screen,Urine Negative (Negative)
[2020-04-21] MEDS ORDERED: ASPIRIN CHEW 81 MG TABLET PO STA (21:15)
[2020-04-21] MEDS ORDERED: DEXTROSE 50% 25 GM/50 ML SYRINGE IV ONE (22:25)
[2020-04-22] MEDS ORDERED: DEXTROSE 50% 25 GM/50 ML VIAL IV PRN ×2 (00:21→01:14)
[2020-04-22] MEDS ORDERED: GLUCAGON 1 MG VIAL IM PRN (00:21)
[2020-04-22 01:39] LABS: Basophils % 0.2 % (0.0-0.8); Eosinophils # 0.3 10*3/uL (0.0-0.87); Eosinophils % 3.4 % (0.00-10.9); Hematocrit 27.5 VOL% (42.0-52.0); Immature Granulocytes % 0.9 %; Immature Granulocytes Absolute 0.08 #; Lymphocytes # 1.7 10*3/uL (1.4-4.0); Lymphocytes % 19.7 % (21.2-54.2); Mean Corpuscular HGB Conc 32.7 GM/DL (32-36); Mean Corpuscular Volume 111.8 FL (87-102); Mean Platelet Volume 10.4 FL (9.6-12.0); Monocytes % 10.4 % (1.7-12.7); NRBC # 0.02 10*3/uL; Neutrophils % 65.4 % (38.7-73.9); Platelet Count 182 T/CUMM (130-400); Red Blood Count 2.46 MC/CUMM (3.8-5.5); Red Cell Distribution Width 14.5 % (9.3-17.3); White Blood Count 8.9 T/CUMM (4-12)
[2020-04-22 05:24] LABS: Albumin 2.7 G/DL (3.4-5.0)
[2020-04-22 05:40] LABS: Folate 21.1 NG/ML (5.4-24.0)
[2020-04-22 05:53] LABS: Ferritin 461.7 ng/ml (26-388)
[2020-04-22 06:04] LABS: % Iron Saturation 18.2 % (18-50)
[2020-04-22] MEDS: FINASTERIDE 5 MG TABLET PO SCH (09:47)
[2020-04-22] MEDS: CLOPIDOGREL 75 MG TABLET PO SCH (09:47)
[2020-04-22] MEDS: DIVALPROEX 500 MG TABLET PO SCH ×3 (09:47→20:39)
[2020-04-22] MEDS: APIXABAN 2.5 MG TABLET PO SCH ×2 (09:47→20:39)
[2020-04-22] MEDS: SEVELAMER CARBONATE 800 MG TABLET PO SCH ×3 (09:47→20:38)
[2020-04-22] MEDS: ISOSORBIDE MONONITRATE 60 MG TABLET PO SCH (09:48)
[2020-04-22] MEDS: TAMSULOSIN 0.4 MG CAPSULE PO SCH (09:48)
[2020-04-22] MEDS: ASCORBIC ACID 500 MG TABLET PO SCH (09:48)
[2020-04-22] MEDS: PANTOPRAZOLE 40 MG TABLET PO SCH (09:48)
[2020-04-22] MEDS: POLYCARBOPHIL 625 MG TABLET PO SCH ×2 (09:50→20:39)
[2020-04-22] MEDS: RANOLAZINE 500 MG TABLET PO SCH ×2 (09:50→20:38)
[2020-04-22] MEDS: METOPROLOL SUCCINATE XL 100 MG TABLET PO SCH (09:50)
[2020-04-22] MEDS: INSULIN LISPRO 100 UNIT/ML SUBCUT SCH ×2 (09:51→18:09)
[2020-04-22] MEDS ORDERED: TUBERCULIN SKIN TEST 0.1 ML SYRINGE INTRADERM ONE (11:39)
[2020-04-22 13:47] LABS: Troponin I 0.236 NG/ML (0.00-0.045)
[2020-04-22 14:49] LABS: Free T4 (Free Thyroxine) 1.15 NG/DL (0.76-1.46)
[2020-04-22] MEDS: ATORVASTATIN 40 MG TABLET PO SCH (20:39)
[2020-04-23 06:52] LABS: Troponin I 0.192 NG/ML (0.00-0.045)
[2020-04-23] MEDS: INSULIN LISPRO 100 UNIT/ML SUBCUT SCH ×2 (07:59→17:45)
[2020-04-23] MEDS: PANTOPRAZOLE 40 MG TABLET PO SCH (09:22)
[2020-04-23] MEDS: ISOSORBIDE MONONITRATE 60 MG TABLET PO SCH (09:22)
[2020-04-23] MEDS: POLYCARBOPHIL 625 MG TABLET PO SCH ×2 (09:22→21:21)
[2020-04-23] MEDS: METOPROLOL SUCCINATE XL 100 MG TABLET PO SCH (09:22)
[2020-04-23] MEDS: SEVELAMER CARBONATE 800 MG TABLET PO SCH ×3 (09:22→21:16)
[2020-04-23] MEDS: FINASTERIDE 5 MG TABLET PO SCH (09:22)
[2020-04-23] MEDS: DIVALPROEX 500 MG TABLET PO SCH ×2 (09:22→15:05)
[2020-04-23] MEDS: ASCORBIC ACID 500 MG TABLET PO SCH (09:22)
[2020-04-23] MEDS: CLOPIDOGREL 75 MG TABLET PO SCH (09:22)
[2020-04-23] MEDS: APIXABAN 2.5 MG TABLET PO SCH ×2 (09:22→21:16)
[2020-04-23] MEDS: RANOLAZINE 500 MG TABLET PO SCH ×2 (09:23→21:21)
[2020-04-23] MEDS: TAMSULOSIN 0.4 MG CAPSULE PO SCH (11:50)
[2020-04-23] MEDS: ACYCLOVIR 5% OINT 15 GM TUBE TOP SCH ×3 (14:37→21:32)
[2020-04-23] MEDS: clonazePAM 0.5 MG TABLET PO SCH (21:16)
[2020-04-23] MEDS: ATORVASTATIN 40 MG TABLET PO SCH (21:16)
[2020-04-24 05:34] LABS: Basophils % 0.5 % (0.0-0.8); Eosinophils # 0.3 10*3/uL (0.0-0.87); Hematocrit 29.1 VOL% (42.0-52.0); Hemoglobin 9.7 GM/DL (14.0-18.0); Immature Granulocytes % 0.4 %; Immature Granulocytes Absolute 0.03 #; Lymphocytes # 2.1 10*3/uL (1.4-4.0); Lymphocytes % 27.4 % (21.2-54.2); Mean Corpuscular HGB Conc 33.3 GM/DL (32-36); Mean Corpuscular Volume 111.1 FL (87-102); Mean Platelet Volume 10.2 FL (9.6-12.0); Monocytes % 13.6 % (1.7-12.7); Neutrophils % 54.1 % (38.7-73.9); Platelet Count 218 T/CUMM (130-400); Red Blood Count 2.62 MC/CUMM (3.8-5.5); Red Cell Distribution Width 14.2 % (9.3-17.3); White Blood Count 7.6 T/CUMM (4-12)
[2020-04-24 06:03] LABS: Hypochromasia 1+; Ovalocytes Slight; Platelet Estimate Adequate
[2020-04-24 06:04] LABS: Microcytosis Slight
[2020-04-24 06:16] LABS: Calcium 8.1 MG/DL (8.5-10.1); Osmolality,Calculated 295.2 MOS/KG (273-304)
[2020-04-24] MEDS: LEVOTHYROXINE 75 MCG TABLET PO SCH (07:16)
[2020-04-24] MEDS: ACYCLOVIR 5% OINT 15 GM TUBE TOP SCH ×5 (07:41→22:58)
[2020-04-24] MEDS: METOPROLOL SUCCINATE XL 100 MG TABLET PO SCH (08:33)
[2020-04-24] MEDS: CLOPIDOGREL 75 MG TABLET PO SCH (08:33)
[2020-04-24] MEDS: POLYCARBOPHIL 625 MG TABLET PO SCH ×2 (08:33→20:49)
[2020-04-24] MEDS: PANTOPRAZOLE 40 MG TABLET PO SCH (08:33)
[2020-04-24] MEDS: SEVELAMER CARBONATE 800 MG TABLET PO SCH ×3 (08:33→20:47)
[2020-04-24] MEDS: ASCORBIC ACID 500 MG TABLET PO SCH (08:33)
[2020-04-24] MEDS: TAMSULOSIN 0.4 MG CAPSULE PO SCH (08:33)
[2020-04-24] MEDS: FINASTERIDE 5 MG TABLET PO SCH (08:33)
[2020-04-24] MEDS: DIVALPROEX 500 MG TABLET PO SCH (08:33)
[2020-04-24] MEDS: ISOSORBIDE MONONITRATE 30 MG TABLET PO SCH (08:33)
[2020-04-24] MEDS: BISACODYL 5 MG TABLET PO PRN (08:33)
[2020-04-24] MEDS: APIXABAN 2.5 MG TABLET PO SCH ×2 (08:33→20:48)
[2020-04-24] MEDS: RANOLAZINE 500 MG TABLET PO SCH ×2 (08:34→20:48)
[2020-04-24] MEDS: INSULIN LISPRO 100 UNIT/ML SUBCUT SCH ×2 (10:13→17:11)
[2020-04-24] MEDS: ATORVASTATIN 40 MG TABLET PO SCH (20:48)
[2020-04-24] MEDS: clonazePAM 0.5 MG TABLET PO SCH (20:48)
[2020-04-25 05:56] LABS: Basophils # 0.1 10*3/uL (0.0-0.2); Basophils % 0.7 % (0.0-0.8); Eosinophils # 0.3 10*3/uL (0.0-0.87); Eosinophils % 4.1 % (0.00-10.9); Hematocrit 28.8 VOL% (42.0-52.0); Hemoglobin 9.7 GM/DL (14.0-18.0); Immature Granulocytes % 0.3 %; Immature Granulocytes Absolute 0.02 #; Lymphocytes # 1.8 10*3/uL (1.4-4.0); Lymphocytes % 25.6 % (21.2-54.2); Mean Corpuscular HGB Conc 33.7 GM/DL (32-36); Mean Corpuscular Volume 109.9 FL (87-102); Mean Platelet Volume 10.2 FL (9.6-12.0); Monocytes % 12.3 % (1.7-12.7); Platelet Count 208 T/CUMM (130-400); Red Blood Count 2.62 MC/CUMM (3.8-5.5); Red Cell Distribution Width 14.3 % (9.3-17.3); White Blood Count 6.8 T/CUMM (4-12)
[2020-04-25] MEDS: LEVOTHYROXINE 75 MCG TABLET PO SCH (06:09)
[2020-04-25] MEDS: ACYCLOVIR 5% OINT 15 GM TUBE TOP SCH ×5 (06:09→22:10)
[2020-04-25 06:29] LABS: Calcium 8.4 MG/DL (8.5-10.1); Osmolality,Calculated 290.7 MOS/KG (273-304)
[2020-04-25] MEDS: INSULIN LISPRO 100 UNIT/ML SUBCUT SCH ×2 (08:22→17:33)
[2020-04-25] MEDS: CLOPIDOGREL 75 MG TABLET PO SCH (09:18)
[2020-04-25] MEDS: APIXABAN 2.5 MG TABLET PO SCH ×2 (09:19→20:46)
[2020-04-25] MEDS: FINASTERIDE 5 MG TABLET PO SCH (09:19)
[2020-04-25] MEDS: TAMSULOSIN 0.4 MG CAPSULE PO SCH (09:19)
[2020-04-25] MEDS: BISACODYL 5 MG TABLET PO PRN (09:19)
[2020-04-25] MEDS: POLYCARBOPHIL 625 MG TABLET PO SCH ×2 (09:19→20:45)
[2020-04-25] MEDS: RANOLAZINE 500 MG TABLET PO SCH ×2 (09:19→20:46)
[2020-04-25] MEDS: METOPROLOL SUCCINATE XL 100 MG TABLET PO SCH (09:19)
[2020-04-25] MEDS: DIVALPROEX 500 MG TABLET PO SCH (09:19)
[2020-04-25] MEDS: SEVELAMER CARBONATE 800 MG TABLET PO SCH ×3 (09:19→20:45)
[2020-04-25] MEDS: ASCORBIC ACID 500 MG TABLET PO SCH (09:19)
[2020-04-25] MEDS: ISOSORBIDE MONONITRATE 30 MG TABLET PO SCH (09:19)
[2020-04-25] MEDS: PANTOPRAZOLE 40 MG TABLET PO SCH (10:10)
[2020-04-25] MEDS ORDERED: INFLUENZA VIRUS VACCINE 0.5 ML SYRINGE IM ONE (11:41)
[2020-04-25] MEDS ORDERED: VANCOMYCIN INJ 1,000 MG in SODIUM CHLORIDE 0.9% 250 ML IV ONE (11:49)
[2020-04-25] MEDS: clonazePAM 0.5 MG TABLET PO SCH (20:46)
[2020-04-25] MEDS: ATORVASTATIN 40 MG TABLET PO SCH (20:46)
[2020-04-26] MEDS: ACYCLOVIR 5% OINT 15 GM TUBE TOP SCH ×5 (06:05→22:28)
[2020-04-26] MEDS: LEVOTHYROXINE 75 MCG TABLET PO SCH (06:05)
[2020-04-26 06:09] LABS: Basophils # 0.1 10*3/uL (0.0-0.2); Basophils % 0.9 % (0.0-0.8); Eosinophils # 0.3 10*3/uL (0.0-0.87); Hematocrit 29.1 VOL% (42.0-52.0); Hemoglobin 9.7 GM/DL (14.0-18.0); Immature Granulocytes % 0.4 %; Immature Granulocytes Absolute 0.03 #; Lymphocytes # 1.8 10*3/uL (1.4-4.0); Lymphocytes % 25.8 % (21.2-54.2); Mean Corpuscular HGB Conc 33.3 GM/DL (32-36); Mean Corpuscular Volume 108.2 FL (87-102); Mean Platelet Volume 10.1 FL (9.6-12.0); Monocytes % 12.8 % (1.7-12.7); Neutrophils % 56.1 % (38.7-73.9); Platelet Count 237 T/CUMM (130-400); Red Blood Count 2.69 MC/CUMM (3.8-5.5); Red Cell Distribution Width 13.6 % (9.3-17.3); White Blood Count 7.1 T/CUMM (4-12)
[2020-04-26 06:26] LABS: Calcium 8.2 MG/DL (8.5-10.1); Osmolality,Calculated 290.1 MOS/KG (273-304)
[2020-04-26] MEDS: INSULIN LISPRO 100 UNIT/ML SUBCUT SCH ×2 (08:13→18:11)
[2020-04-26] MEDS: FINASTERIDE 5 MG TABLET PO SCH (09:25)
[2020-04-26] MEDS: ISOSORBIDE MONONITRATE 30 MG TABLET PO SCH (09:25)
[2020-04-26] MEDS: CLOPIDOGREL 75 MG TABLET PO SCH (09:25)
[2020-04-26] MEDS: PANTOPRAZOLE 40 MG TABLET PO SCH (09:25)
[2020-04-26] MEDS: TAMSULOSIN 0.4 MG CAPSULE PO SCH (09:25)
[2020-04-26] MEDS: SEVELAMER CARBONATE 800 MG TABLET PO SCH ×3 (09:25→20:22)
[2020-04-26] MEDS: DIVALPROEX 500 MG TABLET PO SCH (09:25)
[2020-04-26] MEDS: METOPROLOL SUCCINATE XL 100 MG TABLET PO SCH (09:25)
[2020-04-26] MEDS: POLYCARBOPHIL 625 MG TABLET PO SCH ×2 (09:25→20:22)
[2020-04-26] MEDS: ASCORBIC ACID 500 MG TABLET PO SCH (09:25)
[2020-04-26] MEDS: RANOLAZINE 500 MG TABLET PO SCH ×2 (09:25→20:22)
[2020-04-26] MEDS: APIXABAN 2.5 MG TABLET PO SCH (09:25)
[2020-04-26] MEDS ORDERED: VANCOMYCIN INJ 750 MG in SODIUM CHLORIDE 0.9% 250 ML IV PRN (10:55)
[2020-04-26] MEDS ORDERED: VANCOMYCIN INJ 1,000 MG in SODIUM CHLORIDE 0.9% 250 ML IV ONE ×2 (11:10→21:00)
[2020-04-26] MEDS: HYDROmorphone 2 MG/1 ML VIAL IV PRN (14:15)
[2020-04-26] MEDS ORDERED: VANCOMYCIN INJ 1,750 MG in SODIUM CHLORIDE 0.9% 500 ML IV ONE (17:00)
[2020-04-26] MEDS: clonazePAM 0.5 MG TABLET PO SCH (20:22)
[2020-04-26] MEDS: ATORVASTATIN 40 MG TABLET PO SCH (20:22)
[2020-04-27] MEDS: ACYCLOVIR 5% OINT 15 GM TUBE TOP SCH ×5 (06:03→21:31)
[2020-04-27] MEDS: LEVOTHYROXINE 75 MCG TABLET PO SCH (06:03)
[2020-04-27 06:56] LABS: Basophils # 0.1 10*3/uL (0.0-0.2); Basophils % 0.7 % (0.0-0.8); Eosinophils # 0.3 10*3/uL (0.0-0.87); Eosinophils % 3.1 % (0.00-10.9); Hematocrit 28.1 VOL% (42.0-52.0); Hemoglobin 9.4 GM/DL (14.0-18.0); Immature Granulocytes % 0.7 %; Immature Granulocytes Absolute 0.06 #; Lymphocytes % 25.1 % (21.2-54.2); Mean Corpuscular HGB Conc 33.5 GM/DL (32-36); Mean Corpuscular Volume 110.6 FL (87-102); Mean Platelet Volume 10.3 FL (9.6-12.0); Neutrophils % 57.4 % (38.7-73.9); Platelet Count 240 T/CUMM (130-400); Red Blood Count 2.54 MC/CUMM (3.8-5.5); Red Cell Distribution Width 13.8 % (9.3-17.3); White Blood Count 8.1 T/CUMM (4-12)
[2020-04-27 07:19] LABS: Macrocytosis 1+; Platelet Estimate Normal
[2020-04-27] MEDS: HYDROmorphone 2 MG/1 ML VIAL IV PRN (07:22)
[2020-04-27 07:32] LABS: Calcium 7.9 MG/DL (8.5-10.1); Osmolality,Calculated 284.1 MOS/KG (273-304)
[2020-04-27] MEDS: INSULIN LISPRO 100 UNIT/ML SUBCUT SCH ×2 (08:56→18:10)
[2020-04-27] MEDS: METOPROLOL SUCCINATE XL 100 MG TABLET PO SCH (09:14)
[2020-04-27] MEDS: DIVALPROEX 500 MG TABLET PO SCH (09:14)
[2020-04-27] MEDS: FINASTERIDE 5 MG TABLET PO SCH (09:14)
[2020-04-27] MEDS: ISOSORBIDE MONONITRATE 30 MG TABLET PO SCH (09:14)
[2020-04-27] MEDS: ASCORBIC ACID 500 MG TABLET PO SCH (09:14)
[2020-04-27] MEDS: SEVELAMER CARBONATE 800 MG TABLET PO SCH ×3 (09:14→21:31)
[2020-04-27] MEDS: PANTOPRAZOLE 40 MG TABLET PO SCH (09:14)
[2020-04-27] MEDS: TAMSULOSIN 0.4 MG CAPSULE PO SCH (09:14)
[2020-04-27] MEDS: RANOLAZINE 500 MG TABLET PO SCH ×2 (09:14→21:31)
[2020-04-27] MEDS: POLYCARBOPHIL 625 MG TABLET PO SCH ×2 (09:48→21:31)
[2020-04-27] MEDS ORDERED: ISOSORBIDE MONONITRATE 30 MG TABLET PO SCH (11:50)
[2020-04-27] MEDS: ATORVASTATIN 40 MG TABLET PO SCH (21:31)
[2020-04-27] MEDS: clonazePAM 0.5 MG TABLET PO SCH (21:31)
[2020-04-28 06:13] LABS: Basophils # 0.1 10*3/uL (0.0-0.2); Basophils % 0.9 % (0.0-0.8); Eosinophils # 0.4 10*3/uL (0.0-0.87); Eosinophils % 4.5 % (0.00-10.9); Hematocrit 27.4 VOL% (42.0-52.0); Immature Granulocytes % 0.9 %; Immature Granulocytes Absolute 0.07 #; Lymphocytes # 1.9 10*3/uL (1.4-4.0); Lymphocytes % 24.9 % (21.2-54.2); Mean Corpuscular HGB Conc 32.8 GM/DL (32-36); Mean Corpuscular Volume 110.5 FL (87-102); Mean Platelet Volume 10.2 FL (9.6-12.0); Neutrophils % 56.8 % (38.7-73.9); Platelet Count 249 T/CUMM (130-400); Red Blood Count 2.48 MC/CUMM (3.8-5.5); Red Cell Distribution Width 13.6 % (9.3-17.3); White Blood Count 7.8 T/CUMM (4-12)
[2020-04-28] MEDS: ACYCLOVIR 5% OINT 15 GM TUBE TOP SCH ×3 (06:18→14:46)
[2020-04-28] MEDS: LEVOTHYROXINE 75 MCG TABLET PO SCH (06:18)
[2020-04-28 06:23] LABS: Calcium 7.9 MG/DL (8.5-10.1); Osmolality,Calculated 293.8 MOS/KG (273-304)
[2020-04-28 06:45] LABS: Hypochromasia 1+; Microcytosis 1+; Platelet Estimate Adequate
[2020-04-28] MEDS: INSULIN LISPRO 100 UNIT/ML SUBCUT SCH (08:29)
[2020-04-28] MEDS: RANOLAZINE 500 MG TABLET PO SCH (09:37)
[2020-04-28] MEDS: POLYCARBOPHIL 625 MG TABLET PO SCH (09:37)
[2020-04-28] MEDS: SEVELAMER CARBONATE 800 MG TABLET PO SCH ×2 (09:38→14:56)
[2020-04-28] MEDS: TAMSULOSIN 0.4 MG CAPSULE PO SCH (09:38)
[2020-04-28] MEDS: DIVALPROEX 500 MG TABLET PO SCH (09:39)
[2020-04-28] MEDS: PANTOPRAZOLE 40 MG TABLET PO SCH (09:39)
[2020-04-28] MEDS: FINASTERIDE 5 MG TABLET PO SCH (09:39)
[2020-04-28] MEDS: ASCORBIC ACID 500 MG TABLET PO SCH (09:39)
[2020-04-28] MEDS: METOPROLOL SUCCINATE XL 100 MG TABLET PO SCH (09:49)
[2020-04-28] MEDS: CLOPIDOGREL 75 MG TABLET PO SCH (10:05)
[2020-04-28] MEDS: APIXABAN 2.5 MG TABLET PO SCH (10:05)
[2020-04-28 15:28] VITALS: BP 103/89
== END 2020-04-28 16:04 ==
LOC: N.ED 15:39 → N.EDINP 15:39 → N.3E 04-22 00:59
PROVIDERS: ADMIT Internal Medicine; ATTEND Internal Medicine